=== PATIENT | male | born 1945 | race Caucasian/White ===

== ENCOUNTER 2018-09-17 10:58 | Inpatient (IN) ==
--- NOTE | 2018-09-12 08:53 | PAT Medication Instructions ---
Medication Instructions Date of Service September 12, 2018 Home Medications alfuzosin 10 mg PO HS cholecalciferol (vitamin D3) [Vitamin D3] 5,000 unit PO QAM coQ10 (ubiquinol) 200 mg PO BID cyanocobalamin (vitamin B-12) 100 mcg SUBCUT UD lorazepam 0.5 - 1 mg PO DAILY PRN losartan 100 mg PO QAM metoprolol succinate 50 mg PO QAM nitroglycerin 0.4 mg SUBLINGUAL UD PRN omeprazole 20 mg PO QAM rosuvastatin 40 mg PO HS Continue as directed nitroglycerin 0.4 mg SUBLINGUAL UD PRN (if needed) STOP taking 2 weeks before surgery (or as soon as possible if surgery is within 2 weeks) coQ10 (ubiquinol) 200 mg PO BID DO NOT take the morning of surgery cholecalciferol (vitamin D3) [Vitamin D3] 5,000 unit PO QAM cyanocobalamin (vitamin B-12) 100 mcg SUBCUT UD losartan 100 mg PO QAM Take morning of surgery With a small sip of water, OTHERWISE NOTHING TO EAT OR DRINK AFTER MIDNIGHT: lorazepam 0.5 - 1 mg PO DAILY PRN (if needed) metoprolol succinate 50 mg PO QAM omeprazole 20 mg PO QAM Take evening before surgery alfuzosin 10 mg PO HS rosuvastatin 40 mg PO HS Other Notes If you have any questions please call us at [phone] or [phone] or [phone] or [phone]
--- NOTE | 2018-09-12 09:03 | Anesthesiology Consultation ---
Date of Service September 12, 2018 Assessment & Plan (1) Encounter for pre-operative examination: - No previous anesthesia/intubation records available. Chart Review Chart Review: Acceptable Risk for Surgery and Patient seen in Pre Admission Testing Consults Requested medical (Dr. Rothman (09/12 @ 1:30)) Patient was seen by PCPs office on 09/12 for preoperative evaluation. Per note from that visit, patient is medically cleared pending cardiac clearance. Cardiologists office was contacted by PCP, and on 09/16/18 Dr. Park from Cardiology wrote a note that states "Mr. De La Fuente is cleared at intermediate risk for his upcoming procedure with you." Teaching & Discussion Pre-Anesthesia Teaching/Discussion Notes: Instructed NPO after midnight before s urgery, except medications with 15 cc of water. Medication instructions provided according to the PAT guidelines. History Surgery Operation Date: 09/17/18 12:45 Proposed Procedures p L3-L4 Decompression and Fusion, Spinal Cord Monitoring - Joon Small, Height/Weight Height: 5 ft 5.5 in Weight: 110.7 kg Allergies Allergy/AdvReac Type Severity Reaction Status Date / Time procaine [From Novocain] AdvReac Mild "got slow Verified 09/12/18 09:07 all over feeling" Medications Home Medications Medication Instructions Recorded Confirmed Last Taken alfuzosin 10 mg PO HS 09/12/18 09/12/18 Unknown cholecalciferol (vitamin D3) 5,000 unit PO QAM 09/12/18 09/12/18 Unknown [Vitamin D3] coQ10 (ubiquinol) 200 mg PO BID 09/12/18 09/12/18 Unknown cyanocobalamin (vitamin B-12) 100 mcg SUBCUT UD 09/12/18 09/12/18 Unknown lorazepam 0.5 - 1 mg PO DAILY PRN 09/12/18 09/12/18 Unknown losartan 100 mg PO QAM 09/12/18 09/12/18 Unknown metoprolol succinate 50 mg PO QAM 09/12/18 09/12/18 Unknown nitroglycerin 0.4 mg SUBLINGUAL UD PRN 09/12/18 09/12/18 Unknown omeprazole 20 mg PO QAM 09/12/18 09/12/18 Unknown rosuvastatin 40 mg PO HS 09/12/18 09/12/18 Unknown Past Medical History Medical History BPH (benign prostatic hyperplasia) Degenerative disc disease Diverticulitis GERD (gastroesophageal reflux disease) Hyperlipidemia Hypertension Irregular heart beat Myocardial Infarction 09/04/2014 Osteoarthritis Temporomandibular joint disorder Exercise / Class Metabolic Activity III < 4 Walking/Shop/Light housework (Currently limited due to the back/leg pain. Able to slowly climb stairs. Denies CP or SOB. ) Past Family History Family History Mother Family history of diabetes mellitus Past Surgical History Surgical History H/O wrist surgery RT WRIST FUSION History of appendectomy History of carpal tunnel release RT/LEFT History of colonoscopy History of esophagogastroduodenoscopy (EGD) History of heart artery stent 1 STENT PLACED 2014 IN [place] History of tooth extraction Past Anesthesia History No Hx of Anesthesia Complications and No Family Hx of Anesthesia Complications History of PONV No Hx of Motion Sickness and History of PONV (Once after wrist fusion, never again since that time. ) Social History Smoking Status: Former smoker tobacco type: cigarettes Smoking cigarettes per day: ?amount x 3 years Do You Dip or Chew Tobacco: No Smoking End Date: 1965 Hx Alcohol Use: Yes Alcohol type: beer alcohol intake frequency: holidays/special occasions only Hx Substance Use: No substance use type: does not use Review of Systems Patient denies chest pain, shortness of breath, dyspnea on exertion, cough, wheezing, palpitations. +Joint Pain (Back, right wrist) +Acid Reflux (Controlled by current medications) Physical Exam Vital Signs BP: 164/87 P: 75 R: 20 T: 98.2 SPO2: 94% on RA Constitutional + morbidly obese ENMT Mouth: + poor dentition Thyromental Distance: < 3.5 Finger Breadths (3) Mallampati Class: III Neck normal visual inspection and + thick neck; neck extension not limited Respiratory normal respiratory effort Auscultation: lungs clear to auscultation bilaterally Cardiovascular Rate/Rhythm: regular rate and regular rhythm Heart Sounds: no murmur Vessels: no carotid bruit Neurologic moves all extremities Psychiatric Orientation: alert and oriented x 3 Mood: + anxious mood Testing Laboratory Results 09/12/18 09:34 09/12/18 09:34 09/12/18 09/12/18 09/12/18 09:34 09:34 09:34 PT 10.3 INR 1.0 APTT 26.1 Urine Color Yellow Urine Appearance Clear Urine pH 7.5 Ur Specific Alva 1.016 Urine Protein Negative Urine Glucose (UA) Negative Urine Ketones Negative Urine Nitrite Negative Ur Leukocyte Esterase Negative Urine WBC (Auto) 1-5 Urine RBC (Auto) 0-4 U Hyaline Cast (Auto) 1-5 U Epithel Cells (Auto) 10-20 H Urine Bacteria (Auto) Negative Blood Type A Positive Antibody Screen NEGATIVE Electrocardiogram Date: 09/12/18 Findings: + NSR @ (72) Left axis deviation Chest X-Ray Date: 09/12/18 Findings: + NAD FINDINGS: The bones soft tissues and hemidiaphragms are normal. The cardiomediastinal silhouette is normal. The lungs are clear. The pulmonary vas culature is normal. Chronic atelectatic/lateral thickening changes left base IMPRESSION: No acute process. Echocardiogram Date: 03/10/18 EF: 60-65% LV Function: normal RWMA: + none Valvular Disease: + no significant valvular disease Normal left ventricular size and systolic function Mild cLVH Normal right ventricular size and function No significant valvular stenosis or regurgitation Mild aortic valve sclerosis No PFO/ASD identified Estimated PA systolic pressure is normal Stress Test Date: 03/12/18 Type: exercise Findings: + WNL Resting EF: 60-65% Resting LV Function: normal Resting RWMA: + none Valvular Disease: no significant valvular disease Exercise stress nuclear study is normal. Normal SPECT perfusion imaging. No significant ischemia detected. No evidence of infarct. Stress EKG test results normal. Normal left ventricular systolic function. The gated study showed the EF was 60-65%. Cardiac Catheterization Date: 09/04/14 Findings: + pertinent finding (Acute anterior wall ME with LAD occlusion) Intervention: + MARY placed Acute anterior wall ME with LAD occlusion and EF of 45% PTCA of occluded LAD with placement of 3 x 18 Xience stent.
--- NOTE | 2018-09-12 09:57 | XRay Report ---
XR chest Pre-admission PA/Lat CLINICAL HISTORY: pat preoperative COMPARISON STUDY: No previous studies for comparison. FINDINGS: The bones soft tissues and hemidiaphragms are normal. The cardiomediastinal silhouette is n ormal. The lungs are clear. The pulmonary vasculature is normal. Chronic atelectatic/lateral thickeni ng changes left base IMPRESSION: No acute process. The above report was generated using voice recognition software. It may contain grammatical, syntax or spelling errors. Electronically signed by: Aldo Victoria M.D. 09/12/2018 9:56 AM
[2018-09-12 10:47] LABS: Basophils # (auto) 0.03 K/uL (0-0.2); Basophils % (auto) 0.3 %; Eosinophils # (auto) 0.11 K/uL (0-0.5); Eosinophils % (auto) 1.2 %; Hematocrit (blood only) 41.5 % (42-52); Hemoglobin 14.4 g/dL (14.0-18.0); Immature Granulocytes # (auto) 0.02 K/uL (0.00-0.02); Immature Granulocytes % (auto) 0.2 %; Lymphocytes # (auto) 2.38 K/uL (1.2-3.4); Mean Corpuscular Hgb Conc 34.7 g/dL (32-36); Mean Corpuscular Volume 89.1 fL (80-100); Mean Platelet Volume 10.1 fL (7.4-10.4); Monocytes # (auto) 0.84 K/uL (0.11-0.59); Monocytes % (auto) 9.5 %; Neutrophils # (auto) 5.45 K/uL (1.4-6.5); Neutrophils % (auto) 61.8 %; Platelet Count 201 K/uL (130-400); RDW Coefficient of Variation 13.9 % (11.5-14.5); RDW Standard Deviation 45.5 fL (36.4-46.3); Red Blood Count 4.66 M/uL (4.7-6.1); White Blood Count 8.83 K/uL (4.8-10.8)
[2018-09-12 10:54] LABS: Appearance Urine Clear (Clear); Bacteria Urine Automated Negative (Negative); Bilirubin Urine Negative (Negative); Blood Urine Negative (Negative); Color Urine Yellow; Glucose Urine UA Negative (Negative); Ketones Urine Negative (Negative); Leukocyte Esterase Urine Negative (Negative); Nitrite Urine Negative (Negative); RBC Urine Automated 0-4 /hpf (0-4); Specific Gravity Urine 1.016 (1.000-1.030); Urobilinogen Urine Negative (Negative); pH Urine 7.5 (4.5-7.5)
[2018-09-12 10:56] LABS: Protein Urine Negative (Negative)
[2018-09-12 10:59] LABS: BUN Creatinine Ratio 12.2 (10-20); Calcium 9.2 mg/dl (8.5-10.1); Creatinine Clr Calc Pharmacy 64.1 ml/min; Est GFR (African American) 70.8; Est GFR (Non-African American) 61.1; Potassium 3.6 mmol/L (3.5-5.1)
[2018-09-12 11:05] LABS: Partial Thromboplastin Time 26.1 Seconds (21.0-31.0); Prothrombin Time 10.3 Seconds (9.0-12.0)
[~2018-09-17 10:58] MED LIST: ACETAMINOPHEN 500 MG TAB PO SCH; CEFAZOLIN 2000MG 2,000 MG/15 ML SYR IV SCH; CeleBREX 200 MG CAP PO SCH; GABAPENTIN 300 MG PO SCH; LR 15ML/HR IV SCH
--- OUTSIDE RECORDS SUMMARY | 2018-09-17 11:03 | External Medical Summary | Continuity of Care Document ---
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
[2018-09-17] MEDS ORDERED: MIDAZOLAM HCL 1 MG/ML 2ML VIAL ONE (11:32)
[2018-09-17] MEDS ORDERED: fentaNYL citrate 100 MCG/2 ML VIAL ONE ×3 (11:32→12:48)
--- NOTE | 2018-09-17 11:46 | History & Physical Bridge Note ---
Date of Service September 17, 2018 History & Physical Bridge Note I have examined the patient, reviewed the History & Physical and in the interval since the performance of the History & Physical I have noted the following changes of clinical significance: no changes noted
--- NOTE | 2018-09-17 11:47 | History & Physical Report ---
Date of Service September 17, 2018 Assessment & Plan (1) Spinal stenosis, lumbar region with neurogenic claudication: L3-L4 decompression and fusion Present on Admission?: Yes History of Present Illness Chief Complaint: Back and leg pain Primary Care Provider: Martin Rothman This is a 73-year-old male presents with worsening back and right leg pain. After failing extensive course of nonoperative care is here for surgical intervention. Allergies Allergy/AdvReac Type Severity Reaction Status Date / Time procaine [From Novocain] AdvReac Mild "got slow Verified 09/17/18 11:13 all over feeling" Home Medications Home Medications Medication Instructions Recorded Confirmed Type alfuzosin 10 mg PO HS 09/12/18 09/17/18 History cholecalciferol (vitamin D3) 5,000 unit PO QAM 09/12/18 09/17/18 History [Vitamin D3] coQ10 (ubiquinol) 200 mg PO BID 09/12/18 09/17/18 History cyanocobalamin (vitamin B-12) 100 mcg SUBCUT UD 09/12/18 09/17/18 History lorazepam 0.5 - 1 mg PO DAILY PRN 09/12/18 09/17/18 History losartan 100 mg PO QAM 09/12/18 09/17/18 History metoprolol succinate 50 mg PO QAM 09/12/18 09/17/18 History nitroglycerin 0.4 mg SUBLINGUAL UD PRN 09/12/18 09/12/18 History omeprazole 20 mg PO QAM 09/12/18 09/17/18 History rosuvastatin 40 mg PO HS 09/12/18 09/17/18 History Past Med/Surg History Medical History BPH (benign prostatic hyperplasia) Degenerative disc disease Diverticulitis GERD (gastroesophageal reflux disease) Hyperlipidemia Hypertension Irregular heart beat Myocardial Infarction 09/04/2014 Osteoarthritis Temporomandibular joint disorder Surgical History H/O wrist surgery RT WRIST FUSION History of appendectomy History of carpal tunnel release RT/LEFT History of colonoscopy History of esophagogastroduodenoscopy (EGD) History of heart artery stent 1 STENT PLACED 2014 IN [place] History of tooth extraction Family History Mother Family history of diabetes mellitus Social History Preferred Language: Estonian Communication Ability: Effective Home Improvement Installer Required: No Beliefs That Will Affect Care: None Current Living Situation: Alone Other Information That Helps Us Care for You: No Feels Safe at Home: Yes Safety Concerns: Feels Safe At This Time Smoking Status: Former smoker Tobacco Type: cigarettes Cigarettes Per Day: ?amount x 3 years Do You Dip or Chew Tobacco: No Smoking End Date: 1966 Second Hand Exposure: Yes (IN THE PAST) Tobacco Cessation Education Requested by Patient: No Hx Alcohol Use: Yes Alcohol type: beer Hx Substance Use: No Physical Exam Vital Signs (Past 24 Hours): Patient is alert and oriented neurologically intact with quadriceps weakness on the right.
[2018-09-17] MEDS ORDERED: LIDOCAINE HCL 2% 2 ML VIAL/AMP(20MG/ML) INFIL ONE ×2 (12:07→12:53)
[2018-09-17] MEDS ORDERED: fentaNYL citrate 100 MCG/2 ML VIAL IV PRN (12:08)
[2018-09-17] MEDS ORDERED: HYDROmorphone INJ 2 MG/ML SYR/VIAL ONE ×2 (12:08→13:56)
[2018-09-17] MEDS ORDERED: ONDANSETRON INJ 2 MG/ML 2 ML VIAL IV PRN ×2 (12:08→15:48)
[2018-09-17] MEDS ORDERED: ATROPINE SULFATE 0.1 MG/ML 10ML SYR IV PRN (12:08)
[2018-09-17] MEDS ORDERED: ePHEDrine sulfate 50 MG/ML AMP IV PRN (12:08)
[2018-09-17] MEDS ORDERED: PROMETHAZINE HCL 6.25 MG in SODIUM CHLORIDE 0.9% 50 ML IV PRN (12:08)
--- NOTE | 2018-09-17 12:08 | Anesthesiology Progress Note ---
Date of Service September 17, 2018 Anesthesia Post Procedure Vital Signs Vital Signs: Temp Pulse Resp BP 09/17/18 11:34 36.8 C 82 18 159/87 H Pain Intensity Lower Back: Pain Intensity: 5 Transfer of Care Handoff Completed per policy Notes Mental Status: alert / awake / arousable Patient Amnestic to Procedure: Yes Nausea / Vomiting: adequately controlled Pain: adequately controlled Airway Patency, RR, SpO2: stable & adequate BP & HR: stable & adequate Hydration State: stable & adequate Anesthetic Complications: no major complications apparent
[2018-09-17] MEDS ORDERED: BUPIVACAINE/EPINEPHRINE 0.5% MPF 1:200,000 30 ML VIAL ONE (12:09)
[2018-09-17] MEDS ORDERED: BACITRACIN INJ 50,000 UNIT VIAL ONE (12:09)
[2018-09-17] MEDS ORDERED: DEXAMETHASONE SOD INJ 4 MG/ML VIAL ONE (12:53)
[2018-09-17] MEDS ORDERED: ROCURONIUM BROMIDE 10 MG/ML 5 ML VIAL ONE (12:53)
[2018-09-17] MEDS ORDERED: PROPOFOL IV EMULSION 10 MG/ML 20 ML VIAL IV ONE (12:53)
[2018-09-17] MEDS ORDERED: ONDANSETRON INJ 2 MG/ML 2 ML VIAL ONE (12:53)
[2018-09-17] MEDS ORDERED: NEOSTIGMINE METHYLSULFATE 1 MG/ML 10ML VIAL ONE (12:53)
[2018-09-17] MEDS ORDERED: ePHEDrine sulfate 50 MG/ML SYR ONE (12:53)
[2018-09-17] MEDS ORDERED: GLYCOPYRROLATE 0.2 MG/ML VIAL ONE (12:53)
[2018-09-17] MEDS ORDERED: PHENYLEPHRINE 100MCG/ML 5ML SYR ONE (12:53)
[2018-09-17] MEDS ORDERED: PHENYLEPHRINE HCL 10 MG/ML VIAL ONE (13:02)
[2018-09-17] MEDS ORDERED: FLOSEAL HEMOSTATIC MATRIX 10ML TOP ONE (13:46)
[2018-09-17] MEDS ORDERED: KETOROLAC 30 MG/ML VIAL ONE (13:56)
[2018-09-17] MEDS ORDERED: LARYING-O-JET KIT (LTA) ONE (13:56)
[2018-09-17] MEDS ORDERED: ESMOLOL HCL INJ 10 MG/ML 10ML VIAL IV ONE (13:56)
--- NOTE | 2018-09-17 13:57 | Operative Report ---
Post Operative Report Pre & Post Diagnosis Operation Date: 09/17/18 12:45 Pre-Op Diagnosis: Lumbar spinal stenosis with herniated nucleus pulposus and radiculopathy. obesity Post-Op Diagnosis: Same Procedure Operation Date: 09/17/18 12:45 Actual Procedures #1 lumbar decompression with bilateral medial facetectomies foraminotomies L3-4. #2 posterior spinal fusion L3-4. #3 placement posterior instrumentation L3-4. #4 interbody fusion L3-4. #5 placement of titanium 13 x 26 mm cage L3-4. #6 placement of infuse collagen sponge bone mass graft in the posterior lateral gut ters and ostial amp in the interbody space. #7 placement of local autograft in the posterior lateral gutters. Surgeon Joon Small, DO Medical Education Coordinator Tiki Silver Estimated Blood Loss 175 Findings See Below The patient is 5 foot and 5 inches tall weighing 106.8 kg with a BMI of 38.6. Patient's body habitus created significant technical difficulty with exposure and decompression requiring her largest retractors and instruments. This added at least 25% increase in operative time. Specimens None Indications This is a 73-year-old male who presents with severe back and right leg pain. After failing extensive course of nonoperative care like to go the above- mentioned procedure. Description of Procedure The patient was met with identified and informed consent obtained. He was then taken to the operative suite underwent intubation and placed in a prone position the Sean table on top of the Young frame. All bony prominences well-padded eyes inspected to ensure no external pressure placed upon the peer at this point the lumbar spine was prepped and draped in normal sterile fashion. Sharp dissection with the assistance of Bovie cautery was performed down to and exposing the lamina and transverse processes of L3 and L4 bilaterally. From a caudal to cephalad fashion complete laminectomy of L3 was performed including bilateral medial facetectomies and foraminotomies as well as removal of a massive far lateral disc herniation at L3-4 on the right. After complete decompression pedicle screws were placed in L3 and L4 bilaterally with assistance of fluoroscopy the purposes greg placed. By way of a transforaminal approach on the right complete discectomy was performed in plate graded to subcortical bleeding bone and a 13 x 26 mm titanium cage with osteo-amp bone graft tapped in position. The rods were then compressed locked into final position bilaterally. The transverse processes of L5 3 and L4 burred to subcortical bleeding bone. Infuse collagen sponge mass graft local autograft placed in the posterior lateral gutters. 15 round SERJIO drain inserted. Incision was then closed with 1 Vicryl in the fascia 2-0 Vicryl subtenons seen for Monocryl for final skin closure. Steri-Strip sterile dressings placed. Patient will continue PACU stable disc. Please note Tiki Silver present at the entire procedure involved the patient positioning complex portions of the surgery and final skin closure. Lastly spinal cord monitoring was utilized and no changes noted. I attest to the content of the Intraoperative Record and any orders documented therein. Any exceptions are noted below.
--- NOTE | 2018-09-17 14:44 | Anesthesiology Progress Note ---
Date of Service September 17, 2018 Anesthesia Post Procedure Vital Signs Vital Signs: Temp Pulse Pulse Resp BP Pulse Ox 09/17/18 14:40 79 15 104/52 L 94 09/17/18 14:30 86 15 104/67 98 09/17/18 14:20 90 15 118/72 98 09/17/18 14:12 36.1 C L 93 H 14 110/71 94 09/17/18 11:34 36.8 C 82 18 159/87 H Pain Intensity Lower Back: Pain Intensity: 5 Transfer of Care Handoff Completed per policy Notes Mental Status: alert / awake / arousable Patient Amnestic to Procedure: Yes Nausea / Vomiting: adequately controlled Pain: adequately controlled Airway Patency, RR, SpO2: stable & adequate BP & HR: stable & adequate Hydration State: stable & adequate Anesthetic Complications: no major complications apparent
--- NOTE | 2018-09-17 14:51 | Fluoroscopy Report ---
LUMBAR SPINE, INTRAOPERATIVE FLUOROSCOPY HISTORY: L3-L4 decompression and fusion. FLUOROSCOPY TIME: 14 seconds. FINDINGS: Intraoperative fluoroscopy was provided for the lumbar spine. 2 fluoroscopic spot images we re obtained. Posterior decompression fusion at L3-L4 with pedicle screws and rods. The hardware appea rs intact. IMPRESSION: Fluoroscopy provided for a L3-L4 posterior decompression and fusion. Electronically signed by: Bob Rodriguez M.D. 09/17/2018 2:50 PM
[2018-09-17] MEDS: LACTATED RINGER'S 1,000 ML IV SCH ×2 (15:30→22:01)
[2018-09-17] MEDS ORDERED: ACETAMINOPHEN 1,000 MG/100 ML VIAL IV PRN (15:48)
[2018-09-17] MEDS ORDERED: DO NOT ADMINISTER FLU VACCINE PRN (15:48)
[2018-09-17] MEDS ORDERED: FAMOTIDINE 20 MG TAB PO PRN (15:48)
[2018-09-17] MEDS ORDERED: MAGNESIUM HYDROXIDE SUSP 30 ML UDC PO PRN (15:48)
[2018-09-17] MEDS ORDERED: ALUMINUM/MAGNESIUM SUSP 30 ML UDC PO PRN (15:48)
[2018-09-17] MEDS ORDERED: HYDROmorphone INJ 0.5 MG/0.5 ML SYR IV PRN (15:48)
[2018-09-17] MEDS ORDERED: SOD PHOSPHATE/SOD BIPHOSPHATE ENEMA 132 ML BTL PR PRN (15:48)
[2018-09-17] MEDS ORDERED: BISACODYL 10 MG SUPP PR PRN (15:48)
[2018-09-17] MEDS ORDERED: DO NOT ADMINISTER PNEUMOCOCCAL VACCINE PRN (15:48)
[2018-09-17] MEDS ORDERED: NITROGLYCERIN SL 0.4 MG/TAB TAB SL PRN (15:48)
[2018-09-17] MEDS ORDERED: ACETAMINOPHEN 500 MG TAB PO PRN (15:48)
[2018-09-17] MEDS ORDERED: METOCLOPRAMIDE HCL INJ 5 MG/ML 2 ML VIAL IV PRN (15:48)
[2018-09-17] MEDS ORDERED: PROMETHAZINE HCL 12.5 MG in SODIUM CHLORIDE 0.9% 50 ML IV PRN (15:48)
[2018-09-17] MEDS ORDERED: TRAMADOL HCL 50 MG TABLET PO PRN (15:48)
[2018-09-17] MEDS ORDERED: LORazepam 0.5 MG/1 ML VIAL IV PRN (15:48)
--- NOTE | 2018-09-17 20:18 | Anesthesiology Progress Note ---
Date of Service September 17, 2018 Assessment & Plan (1) Corneal abrasion, left: The patients symptoms and presentation are consistent with post operative corneal abrasion. I discussed this with the patient and his daughter. Most corneal abrasions self resolve within the first 24 to 72 hours. Patching is not necessary and may impair healing. The patient was encouraged to rest with eyes closed and the patient can gently apply a cool compress for symptom relief. The patient should avoid rubbing or touching the symptomatic eye. An order was placed for erythromycin ointment QID to assist with eye pain and symptoms if the patient wishes to use it. We will follow-up with the patient tomorrow to ensure his symptoms continue to improve. Present on Admission?: No Subjective Called to see Mr. De La Fuente who is status post L3-L4 decompression with Dr. Dawn earlier today for left eye pain. The patient states that he first noticed the pain shortly after arriving upstairs when he started to feel more awake. He describes the pain as a foreign body sensation that is worse with blinking. The pain is slightly relieved when he keeps his eyes shut. The pain has improved since he first noticed it, but it is still present. Initially, he may have had some blurry vision in the left eye with the pain, but he feels his vision seems normal now. Review of Systems Review of Systems: All systems reviewed & are unremarkable except as noted in HPI & below Physical Exam Vital Signs: Last Vital Signs Temp 36.7 C 09/17/18 17:43 Pulse 87 09/17/18 17:43 Resp 16 09/17/18 17:43 BP 131/76 09/17/18 17:43 Pulse Ox 96 09/17/18 17:43 Constitutional: WD/WN, vitals as above Eyes: Left eye erythematous, EOMI, no visible foreign body in the left eye or under the upper/lower eye lids. Pupils round and reactive. Respiratory: normal respiratory effort Psychiatric: A+Ox3, euthymic affect Results & Data Medications Administered Lactated Ringer's (Lr) 1,000 mls @ 150 mls/hr IV .[id number] MARINE Stop: 10/17/18 15:47 Last Admin: 09/17/18 15:30 Dose: 150 mls/hr Documented by: [id number]
[2018-09-17] MEDS: CEFAZOLIN 2000MG 2,000 MG/15 ML SYR IV SCH (20:34)
[2018-09-17] MEDS: ALFUZOSIN HCL 10 MG TAB PO SCH (20:37)
[2018-09-17] MEDS: ROSUVASTATIN CALCIUM 20 MG TAB PO SCH (20:37)
[2018-09-17] MEDS: DOCUSATE SODIUM/SENNA 50/8.6MG TAB PO SCH (20:38)
[2018-09-17] MEDS ORDERED: NON-FORMULARY MEDICATION (Coq10 (Ubiquinol) 200 MG) PO SCH (21:00)
[2018-09-17] MEDS: ERYTHROMYCIN OP OINT 1 GM PKT OP SCH (21:53)
[2018-09-18] MEDS: CEFAZOLIN 2000MG 2,000 MG/15 ML SYR IV SCH (04:12)
[2018-09-18] MEDS: POLYETHYLENE (MIRALAX) 17 GM PACK PO SCH ×3 (05:12→18:26)
[2018-09-18 07:02] LABS: Eosinophils # (auto) 0.01 K/uL (0-0.5); Eosinophils % (auto) 0.1 %; Hematocrit (blood only) 37.8 % (42-52); Hemoglobin 13.2 g/dL (14.0-18.0); Immature Granulocytes # (auto) 0.05 K/uL (0.00-0.02); Immature Granulocytes % (auto) 0.3 %; Lymphocytes # (auto) 2.01 K/uL (1.2-3.4); Mean Corpuscular Hgb Conc 34.9 g/dL (32-36); Mean Corpuscular Volume 87.3 fL (80-100); Mean Platelet Volume 9.5 fL (7.4-10.4); Monocytes # (auto) 1.42 K/uL (0.11-0.59); Monocytes % (auto) 7.7 %; Neutrophils # (auto) 14.86 K/uL (1.4-6.5); Neutrophils % (auto) 80.9 %; Platelet Count 183 K/uL (130-400); RDW Coefficient of Variation 13.5 % (11.5-14.5); RDW Standard Deviation 43.4 fL (36.4-46.3); Red Blood Count 4.33 M/uL (4.7-6.1); White Blood Count 18.35 K/uL (4.8-10.8)
[2018-09-18 07:30] LABS: BUN Creatinine Ratio 15.8 (10-20); Calcium 8.9 mg/dl (8.5-10.1); Creatinine Clr Calc Pharmacy 57.5 ml/min; Est GFR (African American) 63.5; Est GFR (Non-African American) 54.8; Potassium 3.6 mmol/L (3.5-5.1)
[2018-09-18] MEDS: CHOLECALCIFEROL 1,000 UNITS TAB PO SCH (08:24)
[2018-09-18] MEDS: LOSARTAN POTASSIUM 50 MG TAB PO SCH (08:24)
[2018-09-18] MEDS: METOPROLOL SUCC 50MG EXT REL TAB PO SCH (08:25)
[2018-09-18] MEDS: hydroCHLOROthiazide 25 MG TAB PO SCH (08:25)
[2018-09-18] MEDS: ERYTHROMYCIN OP OINT 1 GM PKT OP SCH ×4 (08:25→19:53)
[2018-09-18] MEDS: ASPIRIN 81 MG ECTAB PO SCH (08:25)
[2018-09-18] MEDS: PANTOprazole 40 MG TAB PO SCH (08:25)
[2018-09-18] MEDS: OXYCODONE HCL IR 5 MG TAB (IMMEDIATE RELEASE) PO PRN ×3 (08:28→19:53)
--- NOTE | 2018-09-18 09:58 | Orthopedic Progress Note ---
Date of Service September 18, 2018 Assessment & Plan (1) Spinal stenosis, lumbar region with neurogenic claudication: This time we will continue physical therapy monitor his SERJIO output anticipate discharge home Saturday. Present on Admission?: Yes Subjective Patient has marked improvement of his leg pain is quite comfortable. Physical Exam Physical Exam: Patient is good strength testing appears very comfortable. Results & Data Vital Signs (Past 12 Hours) Vital Signs Temp Pulse Resp BP Pulse Ox 09/18/18 07:10 36.8 C 97 H 18 137/74 96 09/18/18 03:34 37.0 C 98 H 16 111/71 93 09/17/18 23:06 36.9 C 99 H 16 134/73 94
--- NOTE | 2018-09-18 10:25 | Anesthesiology Progress Note ---
Date of Service September 18, 2018 Anesthesia Post Procedure Vital Signs Vital Signs: Temp Pulse Pulse Resp BP BP Pulse Ox 09/18/18 07:10 36.8 C 97 H 18 137/74 96 09/18/18 03:34 37.0 C 98 H 16 111/71 93 09/17/18 23:06 36.9 C 99 H 16 134/73 94 09/17/18 17:43 36.7 C 87 16 131/76 96 09/17/18 16:37 36.7 C 71 16 122/71 96 09/17/18 16:00 36.3 C L 77 16 123/72 96 09/17/18 15:30 36.3 C L 89 16 111/67 99 09/17/18 15:15 36.2 C L 76 15 103/46 L 98 09/17/18 15:00 36.2 C L 69 15 102/46 L 94 09/17/18 14:50 36.2 C L 79 14 104/49 L 94 09/17/18 14:40 79 15 104/52 L 94 09/17/18 14:30 86 15 104/67 98 09/17/18 14:20 90 15 118/72 98 09/17/18 14:12 36.1 C L 93 H 14 110/71 94 09/17/18 11:34 36.8 C 82 18 159/87 H Pain Intensity Lower Back: Pain Intensity: 5 Notes Mental Status: alert / awake / arousable and participated in evaluation Nausea / Vomiting: adequately controlled Pain: adequately controlled Airway Patency, RR, SpO2: stable & adequate BP & HR: stable & adequate Hydration State: stable & adequate Notes: Patient complaining of corneal abrasion with blurred vision. Dr Rodriguez following up with patient.
[2018-09-18] MEDS: DOCUSATE SODIUM/SENNA 50/8.6MG TAB PO SCH (19:52)
[2018-09-18] MEDS: ALFUZOSIN HCL 10 MG TAB PO SCH (19:52)
[2018-09-18] MEDS: ROSUVASTATIN CALCIUM 20 MG TAB PO SCH (19:52)
[2018-09-18] MEDS: LORazepam 0.5 MG TAB PO PRN (20:47)
[2018-09-19] MEDS: POLYETHYLENE (MIRALAX) 17 GM PACK PO SCH ×4 (01:06→17:15)
[2018-09-19] MEDS: OXYCODONE HCL IR 5 MG TAB (IMMEDIATE RELEASE) PO PRN ×4 (01:22→19:28)
[2018-09-19] MEDS: ERYTHROMYCIN OP OINT 1 GM PKT OP SCH ×4 (08:50→20:16)
[2018-09-19] MEDS: PANTOprazole 40 MG TAB PO SCH (08:50)
[2018-09-19] MEDS: CHOLECALCIFEROL 1,000 UNITS TAB PO SCH (08:50)
[2018-09-19] MEDS: hydroCHLOROthiazide 25 MG TAB PO SCH (08:50)
[2018-09-19] MEDS: ASPIRIN 81 MG ECTAB PO SCH (08:50)
[2018-09-19] MEDS: LOSARTAN POTASSIUM 50 MG TAB PO SCH (08:50)
[2018-09-19] MEDS: METOPROLOL SUCC 50MG EXT REL TAB PO SCH (08:50)
--- NOTE | 2018-09-19 10:30 | Orthopedic Progress Note ---
Date of Service September 19, 2018 Assessment & Plan (1) Spinal stenosis, lumbar region with neurogenic claudication: Maintain physical therapy today monitor his SERJIO output possible discharge home tomorrow. Present on Admission?: Yes Subjective Back pain is controlled leg symptoms markedly improved. Physical Exam Physical Exam: Patient has good strength testing exam fitting well. Results & Data Vital Signs (Past 12 Hours) Vital Signs Temp Pulse Resp BP Pulse Ox 09/19/18 07:27 36.9 C 100 H 18 120/73 95 09/18/18 23:19 37.0 C 79 16 124/73 92
[2018-09-19] MEDS: DOCUSATE SODIUM/SENNA 50/8.6MG TAB PO SCH (20:16)
[2018-09-19] MEDS: ROSUVASTATIN CALCIUM 20 MG TAB PO SCH (20:16)
[2018-09-19] MEDS: ALFUZOSIN HCL 10 MG TAB PO SCH (20:16)
[2018-09-20] MEDS: POLYETHYLENE (MIRALAX) 17 GM PACK PO SCH ×3 (00:14→13:13)
[2018-09-20] MEDS: LORazepam 0.5 MG TAB PO PRN (04:42)
--- NOTE | 2018-09-20 09:02 | Discharge Summary ---
Date of Service September 20, 2018 Admission HPI Per Admitting Provider This is a 73-year-old male presents with worsening back and right leg pain. After failing extensive course of nonoperative care is here for surgical intervention. Principal Diagnosis Lumbar spinal stenosis with radiculopathy Discharge Data Allergies Allergy/AdvReac Type Severity Reaction Status Date / Time procaine [From Novocain] AdvReac Mild "got slow Verified 09/17/18 11:13 all over feeling" Consultations 09/17/18 15:48 Consult Case Management - Discharge Planning Routine Procedures Performed Operation Date: 09/17/18 12:45 Actual Procedures p L3-L4 Decompression and Fusion, Spinal Cord Monitoring(Not Applicable) - Joon Small DO Ordered Studies 09/17/18 12:45 FL fluoroscopy <1hr Routine FL lumbar spine 2-3V Routine Hospital Course (1) Spinal stenosis, lumbar region with neurogenic claudication: Patient underwent lumbar decompression fusion tolerated as well as taken the orthopedic floor postoperative. Postop day 1 he was up and ambulating leg symptoms markedly improved. He progressed to postop day #2. SERJIO drain decreasing probably. Subsequently discharged home on postop day #3. Discharge orders and instructions can be found the chart for further review. Total Time Total Time Spent Total Time Spent (In Minutes): 20 minutes Discharge Plan Discharge Items Patient Disposition: Home - Self-Care Reason For Visit: Radiculopathy, Lumbar Region Discharge Diagnosis: lumbar stenosis Discharge Goals: Decrease discomfort Activity: Per 'Additional Instructions' section Non-emergency contact: Primary Care Provider Call non-emergency contact if: you have any medication questions Follow-up/Referrals: Martin Rothman D.O. [Primary Care Provider] - Diet: Regular Addtl Provider Instructions: ACTIVITY RECOMMENDATIONS: SELF CARE INSTRUCTIONS AFTER THORACIC/LUMBAR FUSIONS 1. You may walk to your tolerance. It is good exercise for your legs and back. Expect some back and intermittent leg aches and pains. 2. You may perform "counter-top" level activities (make a sandwich, antwan with a project, etc.). 3. No bending or lifting of more than 10 pounds or back twisting of any nature (roll like a log when turning in bed). 4. You may ride in a car for 20-30 minutes at a time. No driving until after your first visit with your doctor. 5. Frequent changes of position and restricting sitting to 30 minutes at a time will help limit the amount of back spasms and stiffness you may experience. 6. You may discontinue the use of ambulatory aids (cane, crutches, etc.) once y our strength and confidence allow. 7. 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 Do not take a tub bath, sit in a hot tub or go into a swimming pool until after your first recheck in the office. SPECIAL CARE INSTRUCTIONS: VERY IMPORTANT TO READ AND REVIEW A. Your surgical incision has been closed with a cosmetic suture under the skin that will dissolve in about 6 weeks. In 14 days, you can use a pair of clean scissors and cut the suture that is left outside of the skin at the ends of your incision. 1. The small skin tapes can be removed 7 days after surgery if they have not fallen off by that point. 2. You may keep the wound open to air as much as possible to promote healing after post-op day number 5 unless told otherwise by your doctor. 3. If you think the wound looks like it is becoming infected (redness or worsening drainage) and/or you are experiencing fever, chill or worsening back pain and muscle spasms, contact the office so that we may evaluate you as soon as possible. B. Complications are uncommon, but please contact us if you have any signs or symptoms of: 1. wound infection (fever higher than 102.5 degrees F, redness, separation of wound, drainage, or increasing pain from the incision) 2. blood clots in legs (pain, swelling, redness and warmth in legs) 3. urinary tract infection (fever higher than 102.5 degrees F, burning upon urination or increased frequency of urination) 4. nerve problems (inability to walk on your toes or heels, numbness, loss of bowel or bladder control) 5. any other symptoms that concern you C. Please call the office at if you have any concerns or questions about your operation or recovery. D. No smoking! Smoking drastically decreases the chance of a solid fusion. E. Do not take any anti-inflammatory medications (Indocin, Advil, Motrin, Aspirin, Naprosyn, etc.) as these may inhibit the chance of a solid fusion. Tylenol is okay to take for pain. MANAGING PAIN AFTER SPINAL SURGERY 1. Narcotic medication is intended for short-term use and will be provided for surgical pain. Surgical pain usually lasts for a period of 4-6 weeks. Narcotic medication includes Percocet, Vicodin, Darvocet, Tylenol #3 or Lortab. 2. Longer-term pain is more appropriately treated with non-narcotic medication such as Tylenol ES. 3. Muscle spasm is not appropriately treated with narcotics. Muscle relaxers such as Soma, Flexeril or Skelaxin can be used along with Tylenol ES. 4. Remember that we all live with some "aches and pains". This is not unusual or uncommon after an injury or as we get older. a. Back pain is expected and may include muscle spasms for 4 to 6 weeks after surgery. The pain should gradually improve. If the pain worsens for no apparent reason, please contact the office. b. Intermittent leg pain may also be experienced and should not be concerned about unless it worsens for no apparent reason. If so, please contact the office. 5. We will provide appropriate medication within the normal guidelines of their prescribed use. We will also be very cautious and aware of potential abuse and extended duration of patients' medication needs. a. Pain medications are for your comfort and to assist with sleep and rest so that the tissue can heal. They are not provided in order to return to normal activity and should not be used through the day. To do so or worsening pain at night can result from ongoing tissue damage and development of tolerance to the prescribed medicine. 6. Please allow 2-3 days to process refills. Prescriptions will not be mailed but must be picked up at the office. FOLLOW UP VISIT: Keep your scheduled follow-up appointment. Any questions, please call the office at . Prescriptions: New tramadol 50 mg Tablet 50 mg PO Q4H PRN (Reason: Pain, Moderate) Qty: 30 RF: 0 oxycodone 5 mg Tablet 5 mg PO Q4H PRN (Reason: Pain, Severe) Qty: 30 RF: 0 Continued metoprolol succinate 50 mg Tablet Extended Release 24 Hr 50 mg PO QAM RF: 0 cyanocobalamin (vitamin B-12) 1,000 mcg/mL Solution 100 mcg SUBCUT UD RF: 0 nitroglycerin 0.4 mg Tablet, Sublingual 0.4 mg sublingual UD PRN (Reason: Chest Pain) RF: 0 lorazepam 1 mg Tablet 0.5 - 1 mg PO DAILY PRN (Reason: Anxiety) RF: 0 losartan 100 mg Tablet 100 mg PO QAM RF: 0 rosuvastatin 40 mg Tablet 40 mg PO HS RF: 0 alfuzosin 10 mg Tablet Extended Release 24 Hr 10 mg PO HS RF: 0 omeprazole 20 mg Tablet,Delayed Release (Dr/Ec) 20 mg PO QAM RF: 0 cholecalciferol (vitamin D3) [Vitamin D3] 5,000 unit Tablet 5,000 unit PO QAM RF: 0 coQ10 (ubiquinol) 200 mg Capsule 200 mg PO BID RF: 0 aspirin tablet 81 mg PO DAILY RF: 0 hydrochlorothiazide tablet 25 mg PO DAILY RF: 0 Stand-Alone Forms: [facility] Discharge Orders: Discharge Order (Routine); Ordered 09/20/18 Ordered By: Joon Small Admission Data Admit Date/Time: 09/17/18 14:02 Attending Provider: Joon Small Admit Provider: Joon Small Primary Care Provider: Martin Rothman Service: Surgical Services
[2018-09-20] MEDS: ERYTHROMYCIN OP OINT 1 GM PKT OP SCH (09:26)
[2018-09-20] MEDS: ASPIRIN 81 MG ECTAB PO SCH (09:26)
[2018-09-20] MEDS: METOPROLOL SUCC 50MG EXT REL TAB PO SCH (09:27)
[2018-09-20] MEDS: PANTOprazole 40 MG TAB PO SCH (09:27)
[2018-09-20] MEDS: hydroCHLOROthiazide 25 MG TAB PO SCH (09:27)
[2018-09-20] MEDS: CHOLECALCIFEROL 1,000 UNITS TAB PO SCH (09:28)
[2018-09-20] MEDS: LOSARTAN POTASSIUM 50 MG TAB PO SCH (09:28)
[2018-09-20] MEDS: OXYCODONE HCL IR 5 MG TAB (IMMEDIATE RELEASE) PO PRN (13:23)
== END 2018-09-20 13:52 | disposition home or self-care (01) ==
LOC: ASU 10:58 → 3E 14:02

== ENCOUNTER 2021-06-21 06:14 | Inpatient (IN) ==
--- NOTE | 2021-05-25 10:22 | PAT Medication Instructions ---
Medication Instructions Date of Service May 25, 2021 Home Medications alfuzosin 10 mg tablet,extended release 24 hr 10 mg PO HS losartan 100 mg tablet 100 mg PO HS metoprolol succinate 50 mg tablet,extended release 24 hr 50 mg PO QAM nitroglycerin 0.4 mg sublingual tablet 0.4 mg SUBLINGUAL UD PRN omeprazole 20 mg tablet,delayed release 20 mg PO QAM rosuvastatin 40 mg tablet 40 mg PO HS acetaminophen 500 mg tablet 1,000 mg PO Q6H PRN amoxicillin 500 mg tablet 500 mg PO Q8H aspirin 81 mg tablet,delayed release 81 mg PO HS cyanocobalamin (vitamin B-12) 5,000 mcg capsule 5,000 mcg PO Q2D empagliflozin 10 mg tablet 10 mg PO QAM ezetimibe 10 mg tablet 10 mg PO HS gabapentin 300 mg capsule 300 mg PO TID hydrochlorothiazide 25 mg tablet 25 mg PO QAM magnesium oxide 400 mg PO QAM potassium chloride 20 mEq tablet,extended release 20 meq PO QAM Continue as directed nitroglycerin 0.4 mg sublingual tablet 0.4 mg SUBLINGUAL UD PRN (if needed) amoxicillin 500 mg tablet 500 mg PO Q8H DO NOT take the morning of surgery hydrochlorothiazide 25 mg tablet 25 mg PO QAM magnesium oxide 400 mg PO QAM potassium chloride 20 mEq tablet,extended release 20 meq PO QAM cyanocobalamin (vitamin B-12) 5,000 mcg capsule 5,000 mcg PO Q2D empagliflozin 10 mg tablet 10 mg PO QAM Take morning of surgery With a small sip of water, OTHERWISE NOTHING TO EAT OR DRINK AFTER MIDNIGHT: metoprolol succinate 50 mg tablet,extended release 24 hr 50 mg PO QAM omeprazole 20 mg tablet,delayed release 20 mg PO QAM acetaminophen 500 mg tablet 1,000 mg PO Q6H PRN (okay to take up to 4 hours prior to surgery if needed) gabapentin 300 mg capsule 300 mg PO TID Take evening before surgery alfuzosin 10 mg tablet,extended release 24 hr 10 mg PO HS losartan 100 mg tablet 100 mg PO HS rosuvastatin 40 mg tablet 40 mg PO HS acetaminophen 500 mg tablet 1,000 mg PO Q6H PRN (if needed) aspirin 81 mg tablet,delayed release 81 mg PO HS (unless surgeon directed otherwise) ezetimibe 10 mg tablet 10 mg PO HS gabapentin 300 mg capsule 300 mg PO TID Other Notes If you have any questions please call us at [phone] or [phone] or [phone] or [phone]
--- NOTE | 2021-05-31 11:54 | Anesthesiology Consultation ---
Date of Service May 31, 2021 Assessment & Plan (1) Encounter for pre-operative examination: Chart Review Chart Review: Acceptable Risk for Surgery (pending preop Covid testing results and surgeon ordered PCP/cardio clearances ) and Patient seen in Pre Admission Testing - Awaiting surgeon ordered PCP (06/02) and cardio (06/14) clearances - Check BSG AM DOS Per PAT appt on 05/31/21, patient denies any recent travel or large group activities. No known Covid positive exposures or Covid related symptoms. No known Covid infection in the past 90 days. Pt is vaccinated for Covid. Preop Covid testing scheduled 06/19/21= will await results. Educated on importance of self quarantining, social distancing and wearing mask in public for the patient one week prior to surgery and after Covid testing done L3-4 decompression with instrumental fusion 09/17/18= Done under [place] with Grade 1 view with MAC #3. ETT #8.0 Teaching & Discussion Pre-Anesthesia Teaching/Discussion Notes: Instructed NPO after midnight before surgery,except medications with 15 cc of water. Medication instructions provided according to the PAT guidelines. History Surgery Operation Date: 06/21/21 07:45 Proposed Procedures p L2-L3 and L4-L5 Decompression and Fusion L3-L4 Hardware Removal Spinal Cord Monitoring - Joon Small, Height/Weight Height: 5 ft 5.5 in Weight: 103 kg Allergies Allergy/AdvReac Type Severity Reaction Status Date / Time procaine [From Novocain] AdvReac Mild "got slow Verified 05/23/21 10:13 all over feeling"-HAPPY Additional Notes: Surgeon's office informed of procaine allergy Medications Home Medications Medication Instructions Recorded Confirmed Last Taken alfuzosin 10 mg tablet,extended 10 mg PO HS 09/12/18 05/23/21 09/16/18 21:30 release 24 hr losartan 100 mg tablet 100 mg PO HS 09/12/18 05/23/21 09/15/18 20:00 metoprolol succinate 50 mg 50 mg PO QA 09/12/18 05/23/21 09/17/18 08:00 tablet,extended release 24 hr nitroglycerin 0.4 mg sublingual 0.4 mg SUBLINGUAL UD PRN 09/12/18 05/23/21 Unknown tablet omeprazole 20 mg tablet,delayed 20 mg PO QAM 09/12/18 05/23/21 09/17/18 08:00 release rosuvastatin 40 mg tablet 40 mg PO HS 09/12/18 05/23/21 09/16/18 20:00 acetaminophen 500 mg tablet 1,000 mg PO Q6H PRN 05/23/21 05/23/21 Unknown amoxicillin 500 mg tablet 500 mg PO Q8H 05/23/21 05/23/21 Unknown aspirin 81 mg tablet,delayed 81 mg PO HS 05/23/21 05/23/21 Unknown release cyanocobalamin (vitamin B-12) 5,000 mcg PO Q2D 05/23/21 05/23/21 Unknown 5,000 mcg capsule empagliflozin 10 mg tablet 10 mg PO QAM 05/23/21 05/23/21 Unknown ezetimibe 10 mg tablet 10 mg PO HS 05/23/21 05/23/21 Unknown gabapentin 300 mg capsule 300 mg PO TID 05/23/21 05/23/21 Unknown hydrochlorothiazide 25 mg tablet 25 mg PO QAM 05/23/21 05/23/21 Unknown magnesium oxide 400 mg PO QAM 05/23/21 05/23/21 Unknown potassium chloride 20 mEq 20 meq PO QAM 05/23/21 05/23/21 Unknown tablet,extended release Past Medical History Medical History (Updated 05/31/21 @ 15:15 by Julia Mendieta PA-C) BPH (benign prostatic hyperplasia) Degenerative disc disease Diabetes mellitus, type 2 ORAL MED Glucose stable per patient GERD (gastroesophageal reflux disease) Well controlled and stable Hyperlipidemia Hypertension Irregular heart beat HX-NO RECENT ISSUES Myocardial Infarction 09/04/2014- S/p stent- F/U DR MONSALVE Osteoarthritis 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 Tremor WRISTS/HANDS-NO DIAGNOSIS-NO NEUROLOGY Stable Exercise / Class Metabolic Activity III < 4 Walking/Shop/Light housework (no chest pain or SOB with flat surface ambulation - uses cane to ambulate ) Past Family History Family History Mother Family history of diabetes mellitus Past Surgical History Surgical History H/O wrist surgery RT WRIST FUSION History of appendectomy History of carpal tunnel release RT/LEFT History of colonoscopy History of esophagogastroduodenoscopy (EGD) History of hand surgery RIGHT TRIGGER FINGERS History of heart artery stent 1 STENT PLACED 2014 IN [place] History of tooth extraction Nausea and vomiting after administration of anesthetic agent WITH APPENDECTOMY IN HIS 30'S Past Anesthesia History No Hx of Anesthesia Complications (with excpetion to one episode of PONV with appendectomy in 30s- no issues with subsequent surgeries ) and No Family Hx of Anesthesia Complications History of PONV No Hx of Motion Sickness and History of PONV (one episode in 30s ) Social History Smoking Status: Former smoker tobacco type: cigarettes Do You Dip or Chew Tobacco: No Smoking End Date: Quit 1966 Hx Alcohol Use: Yes Alcohol type: beer alcohol intake frequency: holidays/special occasions only Hx Substance Use: No substance use type: does not use Review of Systems Hx of snoring - no hx of sleep study Patient denies chest pain, shortness of breath, dyspnea on exertion, cough, wheezing, palpitations. No hx of seizures, stroke. No hx of blood clots or blood transfusions Physical Exam Vital Signs VITALS BP 129/75 P 69 TEMP 97.7 SP02 95% RESP 16 Constitutional no acute distress ENMT Mouth: no TMJ clicking Thyromental Distance: < 3.5 Finger Breadths (3.0) Mallampati Class: I (smaller airway ) Missing molars and side teeth Top front left tooth- capped Neck + limited neck extension (signifciant ) Respiratory normal respiratory effort; no respiratory distress Auscultation: lungs clear to auscultation bilaterally; no wheezes Cardiovascular Rate/Rhythm: regular rate and regular rhythm Heart Sounds: no murmur Vessels: no carotid bruit Musculoskeletal Spine: no pain with cervical ROM Extremities: extremities normal to inspection Psychiatric Orientation: alert Lab Results Anesthesia Preop Results Results Anesthesia Widget: WBC 8.35 K/uL (4.8-10.8) 05/31/21 Hgb 14.7 g/dL (14.0-18.0) 05/31/21 Hct 43.4 % (42-52) 05/31/21 Plt 176 K/uL (130-400) 05/31/21 Na 138 mmol/L (136-145) 05/31/21 K 3.6 mmol/L (3.5-5.1) 05/31/21 Cl 104 mmol/L (98-107) 05/31/21 CO2 27 mmol/L (21-32) 05/31/21 BUN 15 mg/dl (6-23) 05/31/21 Creat 1.03 mg/dl (0.6-1.4) 05/31/21 Glucose Level 122 mg/dl (70-99(Fasting)) H 05/31/21 PT 10.3 Seconds (9.0-12.0) 05/31/21 PTT 27.5 Seconds (21.0-31.0) 05/31/21 INR 1.0 (0.9-1.1) 05/31/21 HA1c 5.8 % (4.5-5.6) H 05/31/21 Urine Color Yellow 05/31/21 Urine Appearance Clear (Clear) 05/31/21 Urine pH 6.5 (4.5-7.5) 05/31/21 Urine Specific [place] 1.021 (1.000-1.030) 05/31/21 Urine Protein Negative (Negative) 05/31/21 Urine Glucose (UA) 3+ (Negative) H 05/31/21 Urine Ketones Negative (Negative) 05/31/21 Urine Blood Negative (Negative) 05/31/21 Urine Nitrite Negative (Negative) 05/31/21 Urine Bilirubin Negative (Negative) 05/31/21 Urine Urobilinogen Negative (Negative) 05/31/21 Urine Leukocyte Esterase Negative (Negative) 05/31/21 Blood Type A Positive 05/31/21 Antibody Screen NEGATIVE 05/31/21 Testing Electrocardiogram Date: 05/31/21 Bradycardia with first-degree AV block at 59 bpm. Left anterior fascicular block. When compared to EKG from September 12, 2017no significant changes found per cardio. Chest X-Ray Date: 05/31/21 Findings: + NAD Echocardiogram Date: 04/16/19 EF: 60-65% LV Function: normal RWMA: + none Other Findings: + LVH (Mild/concentric); no diastolic dysfunction Valvular Disease: + no significant valvular disease No ventricular septal defect. No PFO/ASD identified. Mild pulmonary hypertension. Stress Test Date: 10/26/20 Type: nuclear Pharmacologic stress nuclear study is normal. Normal SPECT perfusion imaging. No significant ischemia detected. No evidence of infarct. Stress EKG results are normal. Normal left ventricular systolic function. Gated study showed the EF was 60-65%. Recommendations: Recommend medical treatment.
[~2021-06-21 06:14] MED LIST changes: -CEFAZOLIN 2000MG 2,000 MG/15 ML SYR IV SCH; +GABAPENTIN 300 MG CAP PO SCH; -GABAPENTIN 300 MG PO SCH; +ceFAZolin 2000MG 2,000 MG/15 ML SYR IV SCH
[2021-06-21] MEDS ORDERED: PROPOFOL IV EMULSION 10 MG/ML 20 ML VIAL IV ONE (06:48)
[2021-06-21] MEDS ORDERED: ROCURONIUM BROMIDE 10 MG/ML 5 ML VIAL IV ONE ×2 (06:48→08:38)
[2021-06-21] MEDS ORDERED: MIDAZOLAM HCL 1 MG/ML 2ML VIAL ONE (06:49)
[2021-06-21] MEDS ORDERED: fentaNYL citrate 100 MCG/2 ML VIAL ONE ×2 (06:49)
[2021-06-21] MEDS ORDERED: ATROPINE SULFATE 0.1 MG/ML 10ML SYR IV PRN (07:04)
[2021-06-21] MEDS ORDERED: ONDANSETRON INJ 2 MG/ML 2 ML VIAL IV PRN ×2 (07:04→11:39)
[2021-06-21] MEDS ORDERED: PROMETHAZINE HCL 12.5 MG in SODIUM CHLORIDE 0.9% 50 ML IV PRN ×2 (07:04→11:39)
[2021-06-21] MEDS ORDERED: BUPIVACAINE 0.5 % 5 MG/1 ML MPF 30ML VIAL ONE (07:16)
[2021-06-21] MEDS ORDERED: EPINEPHrine INJ 1 MG/ML AMP ONE (07:16)
[2021-06-21] MEDS ORDERED: ceFAZolin 330 MG/ML 1 GM VIAL ONE (07:16)
--- NOTE | 2021-06-21 07:29 | History & Physical Bridge Note ---
Date of Service June 21, 2021 History & Physical Bridge Note I have examined the patient, reviewed the History & Physical and in the interval since the performance of the History & Physical I have noted the following changes of clinical significance: no changes noted
--- NOTE | 2021-06-21 07:30 | History & Physical Report ---
Date of Service June 21, 2021 Assessment & Plan (1) Spinal stenosis, lumbar region with neurogenic claudication: Plan: L2-L3 and L4-5 decompression fusion, L3-L4 hardware removal History of Present Illness Chief Complaint: Back and bilateral leg pain Primary Care Provider: Martin Rothman This is a 75-year-old male presents with current persistent back and leg pain. Failing course of nonoperative care is here for surgical invention. Allergies Allergy/AdvReac Type Severity Reaction Status Date / Time procaine [From Novocain] AdvReac Mild "got slow Verified 06/21/21 06:47 all over feeling"-HAPPY Home Medications Medication Instructions Recorded Confirmed Type alfuzosin 10 mg tablet,extended 10 mg PO HS 09/12/18 06/21/21 History release 24 hr (Uroxatral) losartan 100 mg tablet 100 mg PO HS 09/12/18 06/21/21 History metoprolol succinate 50 mg 50 mg PO QAM 09/12/18 05/23/21 History tablet,extended release 24 hr nitroglycerin 0.4 mg sublingual 0.4 mg SUBLINGUAL UD PRN 09/12/18 06/21/21 History tablet omeprazole 20 mg tablet,delayed 20 mg PO QAM 09/12/18 05/23/21 History release rosuvastatin 40 mg tablet 40 mg PO HS 09/12/18 06/21/21 History acetaminophen 500 mg tablet 1,000 mg PO Q6H PRN 05/23/21 06/21/21 History amoxicillin 500 mg tablet 500 mg PO Q8H 05/23/21 06/21/21 History aspirin 81 mg tablet,delayed 81 mg PO HS 05/23/21 06/21/21 History release cyanocobalamin (vitamin B-12) 5,000 mcg PO Q2D 05/23/21 06/21/21 History 5,000 mcg capsule empagliflozin 10 mg tablet 10 mg PO QAM 05/23/21 06/21/21 History (Jardiance) ezetimibe 10 mg tablet 10 mg PO HS 05/23/21 06/21/21 History gabapentin 300 mg capsule 300 mg PO TID 05/23/21 06/21/21 History hydrochlorothiazide 25 mg tablet 25 mg PO QAM 05/23/21 06/21/21 History magnesium oxide 400 mg PO QAM 05/23/21 06/21/21 History potassium chloride 20 mEq 20 meq PO QAM 05/23/21 06/21/21 History tablet,extended release Past Med/Surg History Medical History BPH (benign prostatic hyperplasia) Degenerative disc disease Diabetes mellitus, type 2 ORAL MED Glucose stable per patient GERD (gastroesophageal reflux disease) Well controlled and stable Hyperlipidemia Hypertension Irregular heart beat HX-NO RECENT ISSUES Myocardial Infarction 09/04/2014- S/p stent- F/U DR MONSALVE Osteoarthritis 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 Tremor WRISTS/HANDS-NO DIAGNOSIS-NO NEUROLOGY Stable Surgical History H/O wrist surgery RT WRIST FUSION History of appendectomy History of carpal tunnel release RT/LEFT History of colonoscopy History of esophagogastroduodenoscopy (EGD) History of hand surgery RIGHT TRIGGER FINGERS History of heart artery stent 1 STENT PLACED 2014 IN [place] History of tooth extraction Nausea and vomiting after administration of anesthetic agent WITH APPENDECTOMY IN HIS 30'S Family History Mother Family history of diabetes mellitus Social History Smoking Status: Former smoker Smoking End Date: Quit 1966; Second Hand Exposure: No; Do You Dip or Chew Tobacco: No; Hx Alcohol Use: Yes Alcohol type: beer Hx Substance Use: No Preferred Language: Wolof Communication Ability: Effective Hearing Ability: Hard of Hearing Efficiency Expert Required: No Beliefs That Will Affect Care: None Current Living Situation: Alone current occupational status: retired Other Information That Helps Us Care for You: No Feels Safe at Home: Yes Safety Concerns: Feels Safe At This Time Assistive Devices: Cane, Glasses and Hearing Aid - Bilateral Assistive Devices Comment: CANE PRN Physical Exam Physical Exam: Patient is alert and oriented Heart regular rhythm Lungs clear Results & Data ([facility]) Vital Signs (Past 12 Hours) Vital Signs Temp Resp BP Pulse Ox 06/21/21 06:52 37.0 C 18 136/92 95
[2021-06-21] MEDS ORDERED: LIDOCAINE 2% 20 MG/ML 5 ML SYR IV ONE (08:38)
[2021-06-21] MEDS ORDERED: FLOSEAL HEMOSTATIC MATRIX 10ML TOP ONE (08:40)
[2021-06-21] MEDS ORDERED: ONDANSETRON INJ 2 MG/ML 2 ML VIAL ONE ×2 (08:44→10:28)
[2021-06-21] MEDS ORDERED: DEXAMETHASONE SOD INJ 4 MG/ML VIAL ONE (08:44)
[2021-06-21] MEDS ORDERED: GLYCOPYRROLATE 0.2 MG/ML VIAL ONE (10:06)
[2021-06-21] MEDS ORDERED: NEOSTIGMINE METHYLSULFATE 1 MG/ML 10ML VIAL ONE (10:06)
--- NOTE | 2021-06-21 10:13 | Fluoroscopy Report ---
FL lumbar spine 2-3V CLINICAL HISTORY: L2-3, L4-5 DECOMPRESSION AND FUSION - L3-4 HARDWARE REMOVAL COMPARISON STUDY: Lumbar spine series 519. FLUOROSCOPY TIME: 18 seconds. FINDINGS: 3 fluoroscopic spot images of the lumbar spine demonstrate posterior decompression and fusi on from L2 through L5 with pedicle screws and rods. There are disc spacers in place. The hardware jacinda ears intact. IMPRESSION: Fluoroscopic assistance provided for posterior fusion within the lumbar spine. ACT 112: Negative or not required by law. Electronically signed by: Bob Rodriguez M.D. 06/21/2021 10:12 AM
--- NOTE | 2021-06-21 10:27 | Operative Report ---
Post Operative Report Pre & Post Diagnosis Operation Date: 06/21/21 07:45 Pre-Op Diagnosis: Spinal Stenosis, Lumbar Region with Neurogenic Post-Op Diagnosis: Spinal Stenosis, Lumbar Region with Neurogenic I identified the patient and participated in the time-out.: Yes Procedure Operation Date: 06/21/21 07:45 Actual Procedures #1 removal of posterior instrumentation L3-L4. #2 exploration of fusion L3-L4. #3 lumbar decompression with bilateral medial facetectomies and foraminotomies L1-L2 L2 L3-L4-L5. #4 posterior spinal fusion L2-3 L4-5 #5 placement posterior instrumentation L2-L5. #6 interbody fusion L2 L3-L4-L5. #7 placement of titanium cage 13 x 26 mm at L2-L3 and 15 x 26 mm at L4-5. #8 placement locally harvested morselized autograft in the posterior gutters. #9 placement infuse collagen sponge, master graft in the posterior lateral gutters and I factor interbody space. Surgeon Joon Small, DO Resident Care Supervisor None Estimated Blood Loss 500 Findings See Below The patient is 5 foot 5 inches tall weighing 103 kg with a BMI in excess of 37. The patient's body habitus did contribute to significant technical difficulty requiring her deepest retractors longus instruments in order to perform his procedure. This had at least 50% increased operative time. Specimens None Indications This is a 75-year-old male presents with bulge diagnosis after failing course of nonoperative care is here for the above-mentioned procedure. Description of Procedure Patient met with identified informed consent obtained. Patient was then taken to the operative suite underwent a patient placed in a prone position the [place] table top Young frame. All bony prominences well-padded eyes inspected to ensure no external pressure placed upon the. This point the lumbar spine was prepped and draped in the normal sterile fashion. Sharp dissection with the assistance of Bovie cautery was performed down to and exposing the lamina and transverse processes of L2 instrumentation at L3-L4 and the lamina transverse processes of L5. I then proceeded to move the hardware bilaterally explore the fusion mass at L3-L4 noting it appeared to be mature and intact. Then performed a complete laminectomy of of L4 followed by L2 and partial laminectomy of L1 in cluding bilateral medial facetectomies and foraminotomies addressing severe spinal stenosis. Pedicle screws then placed in L2 L3-L4-L5 bilaterally with assistance of fluoroscopy and appropriate sized greg placed. Bilateral transforaminal portion of right complete discectomy of L4-L5 was performed endplates curetted to subcortical being bone and a 15 x 26 mm titanium cage filled with I factor tamped position. Then proceeded to L to L3 and again by way of a transforaminal portion right complete discectomy was performed endplates curetted to subcortical bone bone and a 13 x 26 mm titanium cage filled I factor tapped in position. The rods were then compressed locked in final position bilaterally. The transverse processes of L to L3 L4-5 burred to subcortically bone. Infuse collagen sponge master graft lobe autograft was placed in the posterior gutters. 15 round SERJIO drain inserted. The incision was then closed with 1 Vicryl in the fascia 2-0 Vicryl subcutaneously and 4 Monocryl for final skin closure. Steri-Strip sterile dressings placed. Patient will continue PACU stable condition. Please note spinal cord monitoring was utilized at the procedure no changes noted. I attest to the content of the Intraoperative Record and any orders documented therein. Any exceptions are noted below.
[2021-06-21] MEDS: HYDROmorphone INJ 1 MG/ML SYRINGE IV PRN ×4 (10:45→11:00)
--- NOTE | 2021-06-21 11:04 | Anesthesiology Progress Note ---
Date of Service June 21, 2021 Anesthesia Post Procedure Vital Signs Vital Signs: Temp Pulse Resp BP BP Pulse Ox 06/21/21 11:00 61 14 105/62 94 06/21/21 10:50 61 12 104/62 95 06/21/21 10:40 66 14 110/70 97 06/21/21 10:33 37.0 C 68 11 L 126/68 94 06/21/21 06:52 37.0 C 18 136/92 95 Pain Intensity Back: Pain Intensity: 5 Transfer of Care Handoff Completed per policy Notes Mental Status: alert / awake / arousable Patient Amnestic to Procedure: Yes Nausea / Vomiting: adequately controlled Pain: adequately controlled Airway Patency, RR, SpO2: stable & adequate BP & HR: stable & adequate Hydration State: stable & adequate Anesthetic Complications: no major complications apparent
[2021-06-21] MEDS ORDERED: NITROGLYCERIN SL 0.4 MG/TAB TAB SL PRN (11:39)
[2021-06-21] MEDS ORDERED: ACETAMINOPHEN 1,000 MG/100 ML VIAL IV PRN (11:39)
[2021-06-21] MEDS ORDERED: PHARMACY GLYCEMIC MGMT CONSULT PRN (11:39)
[2021-06-21] MEDS ORDERED: LORazepam 0.5 MG TAB PO PRN (11:39)
[2021-06-21] MEDS ORDERED: METOCLOPRAMIDE HCL INJ 5 MG/ML 2 ML VIAL IV PRN (11:39)
[2021-06-21] MEDS ORDERED: ONDANSETRON 4 MG OD TAB PO PRN (11:39)
[2021-06-21] MEDS ORDERED: MAGNESIUM HYDROXIDE SUSP 30 ML UDC PO PRN (11:39)
[2021-06-21] MEDS ORDERED: oxyCODONE HCL IR 5 MG TAB (IMMEDIATE RELEASE) PO PRN (11:39)
[2021-06-21] MEDS ORDERED: bisacodyL 10 MG SUPP PR PRN (11:39)
[2021-06-21] MEDS ORDERED: hydrOXYzine HCl 25 MG TAB PO PRN (11:39)
[2021-06-21] MEDS ORDERED: ALUMINUM/MAGNESIUM SUSP 30 ML UDC PO PRN (11:39)
[2021-06-21] MEDS ORDERED: traMADol HCL 50 MG TABLET PO PRN (11:39)
[2021-06-21] MEDS ORDERED: HYDROmorphone INJ 0.5 MG/0.5 ML SYR IV PRN (11:39)
[2021-06-21] MEDS ORDERED: LORazepam 2 MG/1 ML VIAL IV PRN (11:39)
[2021-06-21] MEDS ORDERED: SOD PHOSPHATE/SOD BIPHOSPHATE ENEMA 132 ML BTL PR PRN (11:39)
[2021-06-21] MEDS ORDERED: FAMOTIDINE 20 MG TAB PO PRN (11:39)
[2021-06-21] MEDS ORDERED: DO NOT ADMINISTER FLU VACCINE PRN (11:39)
[2021-06-21] MEDS ORDERED: HYDROmorphone INJ 1 MG/ML SYRINGE IV PRN (11:39)
[2021-06-21] MEDS ORDERED: diphenhydrAMINE Capsule 25 MG CAP PO PRN (11:39)
[2021-06-21] MEDS ORDERED: NALOXONE HCL 0.4 MG/1 ML VIAL/CARP IV PRN (11:39)
[2021-06-21] MEDS ORDERED: DO NOT ADMINISTER PNEUMOCOCCAL VACCINE PRN (11:39)
[2021-06-21] MEDS: SODIUM CHLORIDE 0.9% 1000ML 1,000 ML IV SCH ×2 (12:39→18:36)
[2021-06-21] MEDS ORDERED: GLUCOSE 10 TABS/TUBE PO PRN (12:45)
[2021-06-21] MEDS ORDERED: CARBOHYDRATES FOR HYPOGLYCEMIA PO PRN (12:45)
[2021-06-21] MEDS ORDERED: GLUCOSE 40% GEL 15 GM TUBE PO PRN (12:45)
[2021-06-21] MEDS ORDERED: GLUCAGON FOR INJ 1 MG VIAL IM PRN (12:45)
[2021-06-21] MEDS ORDERED: DEXTROSE 50% 50 ML SYRINGE IV PRN (12:45)
--- NOTE | 2021-06-21 13:10 | Hospitalist Consultation ---
Date of Consultation June 21, 2021 Assessment & Plan (1) Spinal stenosis, lumbar region with neurogenic claudication: As per HPI- POD # 0 - Pain control per primary service - Rescue Narcan is on chart - ABX per primary service - DVT prophylaxis per primary service - IVF per primary service - Incision/drain care per primary service - Gaxiola per primary service - Bowel regime available (2) CAD (coronary artery disease), soboba coronary artery: CAD with AMI in 2015 and Stenting to LAD in 2019 - Continue BB - Hold Cozaar 100mg tonight- follow renal indices in morning- likely able to restart - BP very acceptable at this time - ASA restart when hemostasis ensured by primary service- ordered to restart in 06/21/21 by primary - No current symptoms of angina (3) Diabetes mellitus, type 2: On Jardiance at home- - Pharmacy consult placed for glycemic control by primary service - Follow (4) CHF (congestive heart failure): ICM with Grade I diastolic dysfunction- not acute exacerbation- stable - ECHO reports from clearance- ECHO 04/04- EF 55-60% thickened AV, mod MR, (5) Hyperlipidemia: Cotninue statin - Cartoids reported <50% 04/04 bilaterally (6) GERD (gastroesophageal reflux disease): Protonix increased to 40mg PO BID while postoperative - can reduce back to daily when tolerating adequate diet and no more steroids - H2 discontinued (7) Degenerative disc disease: As above - Continue gabapentin 300 TID (8) BPH (benign prostatic hyperplasia): Continue Alfuzosin - Discontinue gaxiola catheter likely in the morning Supervising Physician Co-Signing Physician Notes I supervised TANI Turner on the care of this patient. I interviewed and examined the patient independently of him. The plan is as written in his note except for any following changes/exceptions: None Seen today after surgery. Doing well. Minimal pain after surgery. Post-op care per primary team. Will follow BP and other medical issues. History of Present Illness Reason for Consultation: Medical Management Requesting Physician: Staci Barney Attending Physician: Joon Small DO History of Present Illness 75 YOM with past medical history of: CAD with coronary stenting x3 LAD (2019), ICM with Grade I diastolic dysfunction, HTN, DM II, HLD, GERD, BPH, Obesity. Patient is POD #0 from L2-L3/L4/L5 decompression with fusion and removal of old L3-L4 hardware secondary to spinal stenosis with neurogenic claudication under general anesthesia. EBL reported 500ml. Patient was evaluated in his room postoperatively, where he is briskly awake and finishing his lunch. He denies currently any nausea and/or vomiting and pain is controlled at the current time. Most of his pain is on the left side just above the waist. He has full sensation and movement of all extremities. Vital signs reviewed, medical history reviewed, ECG reviewed from 06/14/21, and Medical Clearance reviewed with most recent ECHO results. Recommendations - Glycemic consult already placed by primary service- Pharmacy managing- Eva held - Hold HERMINIO ahumada with following of renal indices in the morning - Changed Protonix 40mg to BID - discontinued H2 ghanshyam- - Pain medication with bowel regime already ordered and rescue Narcan Available- agree Allergies Allergy/AdvReac Type Severity Reaction Status Date / Time procaine [From Novocain] AdvReac Mild "got slow Verified 06/21/21 06:47 all over feeling"-HAPPY Home Medications Medication Instructions Recorded Confirmed Type alfuzosin 10 mg tablet,extended 10 mg PO HS 09/12/18 06/21/21 History release 24 hr (Uroxatral) losartan 100 mg tablet 100 mg PO HS 09/12/18 06/21/21 History metoprolol succinate 50 mg 50 mg PO QAM 09/12/18 05/23/21 History tablet,extended release 24 hr nitroglycerin 0.4 mg sublingual 0.4 mg SUBLINGUAL UD PRN 09/12/18 06/21/21 History tablet omeprazole 20 mg tablet,delayed 20 mg PO QAM 09/12/18 05/23/21 History release rosuvastatin 40 mg tablet 40 mg PO HS 09/12/18 06/21/21 History acetaminophen 500 mg tablet 1,000 mg PO Q6H PRN 05/23/21 06/21/21 History amoxicillin 500 mg tablet 500 mg PO Q8H 05/23/21 06/21/21 History aspirin 81 mg tablet,delayed 81 mg PO HS 05/23/21 06/21/21 History release cyanocobalamin (vitamin B-12) 5,000 mcg PO Q2D 05/23/21 06/21/21 History 5,000 mcg capsule empagliflozin 10 mg tablet 10 mg PO QAM 05/23/21 06/21/21 History (Jardiance) ezetimibe 10 mg tablet 10 mg PO HS 05/23/21 06/21/21 History gabapentin 300 mg capsule 300 mg PO TID 05/23/21 06/21/21 History hydrochlorothiazide 25 mg tablet 25 mg PO QAM 05/23/21 06/21/21 History magnesium oxide 400 mg PO QAM 05/23/21 06/21/21 History potassium chloride 20 mEq 20 meq PO QAM 05/23/21 06/21/21 History tablet,extended release oxycodone 5 mg tablet 5 mg PO Q6H PRN #30 tab 06/21/21 Rx tramadol 50 mg tablet 50 mg PO Q6H PRN #30 tab 06/21/21 Rx Patient History Medical History (Updated 06/21/21 @ 13:18 by TANI Cramer) BPH (benign prostatic hyperplasia) CAD (coronary artery disease), soboba coronary artery Degenerative disc disease Diabetes mellitus, type 2 ORAL MED Glucose stable per patient GERD (gastroesophageal reflux disease) Well controlled and stable GERD (gastroesophageal reflux disease) Hyperlipidemia Hypertension Irregular heart beat HX-NO RECENT ISSUES Myocardial Infarction 09/04/2014- S/p stent- F/U DR MONSALVE Osteoarthritis 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 Tremor WRISTS/HANDS-NO DIAGNOSIS-NO NEUROLOGY Stable Surgical History H/O wrist surgery RT WRIST FUSION History of appendectomy History of carpal tunnel release RT/LEFT History of colonoscopy History of esophagogastroduodenoscopy (EGD) History of hand surgery RIGHT TRIGGER FINGERS History of heart artery stent 1 STENT PLACED 2014 IN [place] History of tooth extraction Nausea and vomiting after administration of anesthetic agent WITH APPENDECTOMY IN HIS 30'S Family History Mother Family history of diabetes mellitus Social History Smoking Status: Former smoker Smoking End Date: Quit 1966; Second Hand Exposure: No; Do You Dip or Chew Tobacco: No; Hx Alcohol Use: Yes Alcohol type: beer Hx Substance Use: No Preferred Language: Moroccan Communication Ability: Effective Hearing Ability: Hard of Hearing Cosmetology Instructor Required: No Beliefs That Will Affect Care: None Current Living Situation: Alone current occupational status: retired Other Information That Helps Us Care for You: No Feels Safe at Home: Yes Safety Concerns: Feels Safe At This Time Assistive Devices: Walker Assistive Devices Comment: MARCELINO DOVE Review of Systems Review of Systems: REVIEW OF SYSTEMS: Constitutional: No fever, sweats or chills Eyes: No diplopia, no worsening or blurred vision ENT: normal hearing, no trouble swallowing Respiratory: No cough, sputum, dyspnea at rest or on exertion Cardiovascular: No chest pain, tightness or palpitations Abdomen: No pain, nausea, vomiting, diarrhea or constipation Musculoskeletal: (+) back pain with leg fatigue, Neurologic: No weakness, numbness/tingling, or balance problems Psychiatric: No anxiety or depression Skin: No rash or itch Physical Exam Physical Exam: PHYSICAL EXAM: General: awake, alert, no apparent distress Head: Normocephalic, atraumatic ENT: PERRL, EOMI, no pharyngeal exudate, mucous membranes moist Neuro: AAO x 3, speech clear and appropriate, strength intact bilaterally 5/5, sensation intact and equal all extremities and dermatomes, no pronator drift Chest: equal rise and fall of the chest, no accessory muscle use, no heaves or thrills, Clear to auscultation, on room air, Cardiac: Regular rate and rhythm, S1S2 skin warm dry, cap refill <3 seconds, peripheral pulses +2 no JVD, Grade II systolic murmur, no JVD, no edema GI: NABS x 4 quadrants, soft, tympanic on percussion, nontender to palpation, no rebound, guarding or tenderness : Gaxiola to gravity, no pain, no CVA tenderness, Extremities: Normal inspection, no peripheral edema or erythema, calfs nontender to palpation, TEDS/SCDS on Psych: Normal mood and affect Skin: no rash or erythema Results & Data Results & Data ([facility]) Vital Signs (Past 12 Hours) Vital Signs Temp Pulse Pulse Resp BP BP Pulse Ox 06/21/21 12:33 36.3 C L 63 16 127/73 98 06/21/21 12:11 36.3 C L 52 L 16 106/66 95 06/21/21 11:20 37.0 C 58 L 14 100/56 L 93 06/21/21 11:10 61 12 100/66 96 06/21/21 11:00 61 14 105/62 94 06/21/21 10:50 61 12 104/62 95 06/21/21 10:40 66 14 110/70 97 06/21/21 10:33 37.0 C 68 11 L 126/68 94 06/21/21 06:52 37.0 C 18 136/92 95 Laboratory Results Abnormal lab results 06/21/21 06/21/21 06/21/21 Range/Units 06:37 07:03 10:41 POC Glucose 107 H 129 H (70-99) mg/dl Crossmatch See Detail 06/21/21 Range/Units 12:10 POC Glucose 119 H (70-99) mg/dl Crossmatch Diagnostic Findings Lumbar Spine X-Ray 06/21/21 07:45 FL lumbar spine 2-3V CLINICAL HISTORY: L2-3, L4-5 DECOMPRESSION AND FUSION - L3-4 HARDWARE REMOVAL COMPARISON STUDY: Lumbar spine series 519. FLUOROSCOPY TIME: 18 seconds. FINDINGS: 3 fluoroscopic spot images of the lumbar spine demonstrate posterior decompression and fusion from L2 through L5 with pedicle screws and rods. There are disc spacers in place. The hardware appears intact. IMPRESSION: Fluoroscopic assistance provided for posterior fusion within the lumbar spine. ACT 112: Negative or not required by law. Electronically signed by: Bob Rodriguez M.D. 06/21/2021 10:12 AM Medications Administered Home Medications alfuzosin 10 mg tablet,extended release 24 hr (Uroxatral) 10 mg PO 09/12/18 [History Confirmed 06/21/21] losartan 100 mg tablet 100 mg PO 09/12/18 [History Confirmed 06/21/21] metoprolol succinate 50 mg tablet,extended release 24 hr 50 mg PO [facility] 09/12/18 [History Confirmed 05/23/21] nitroglycerin 0.4 mg sublingual tablet 0.4 mg SUBLINGUAL UD PRN 09/12/18 [History Confirmed 06/21/21] omeprazole 20 mg tablet,delayed release 20 mg PO [facility] 09/12/18 [History Confirmed 05/23/21] rosuvastatin 40 mg tablet 40 mg PO 09/12/18 [History Confirmed 06/21/21] acetaminophen 500 mg tablet 1,000 mg PO Q6H PRN 05/23/21 [History Confirmed 06/21/21] amoxicillin 500 mg tablet 500 mg PO Q8H 05/23/21 [History Confirmed 06/21/21] aspirin 81 mg tablet,delayed release 81 mg PO HS 05/23/21 [History Confirmed ] cyanocobalamin (vitamin B-12) 5,000 mcg capsule 5,000 mcg PO Q2D 05/23/21 [History Confirmed 06/21/21] empagliflozin 10 mg tablet (Jardiance) 10 mg PO QAM 05/23/21 [History Confirmed 06/21/21] ezetimibe 10 mg tablet 10 mg PO HS 05/23/21 [History Confirmed 06/21/21] gabapentin 300 mg capsule 300 mg PO TID 05/23/21 [History Confirmed 06/21/21] hydrochlorothiazide 25 mg tablet 25 mg PO QAM 05/23/21 [History Confirmed 06/21/21] magnesium oxide 400 mg PO QAM 05/23/21 [History Confirmed 06/21/21] potassium chloride 20 mEq tablet,extended release 20 meq PO QAM 05/23/21 [History Confirmed 06/21/21] oxycodone 5 mg tablet 5 mg PO Q6H PRN #30 tab 06/21/21 [Rx] tramadol 50 mg tablet 50 mg PO Q6H PRN #30 tab 06/21/21 [Rx] Active Medications Acetaminophen (Acetaminophen 500 Mg Tab) 1,000 mg PO PREOP MARINE Stop: 06/21/21 18:00 Last Admin: 06/21/21 06:48 Dose: 1,000 mg Documented by: Acetaminophen (Acetaminophen 500 Mg Tab) 1,000 mg PO Q8H PRN PRN Reason: MILD Pain Scale 1,2,3 & Pre PT Stop: 07/21/21 11:38 Al Hydrox/Mg Hydrox/Simethicone (Aluminum/Magnesium Susp 30 Ml Udc) 30 ml PO Q6H PRN PRN Reason: Dyspepsia Stop: 07/21/21 11:38 Alfuzosin HCl (Alfuzosin Hcl 10 Mg Tab) 10 mg PO MARINE Stop: 07/21/21 20:59 Aspirin (Aspirin 81 Mg Ectab) 81 mg PO [facility] Stop: 07/21/21 20:59 Bisacodyl (Bisacodyl 10 Mg Supp) 10 mg CO DAILY PRN PRN Reason: Constipation Stop: 07/21/21 11:38 Celecoxib (Celebrex 200 Mg Cap) 200 mg PO PREOP MARINE Stop: 06/21/21 18:00 Last Admin: 06/21/21 06:48 Dose: 200 mg Documented by: Cyanocobalamin (Cyanocobalamin (B-12) 2,500 Mcg Tablet) 5,000 mcg SL Q48H MARINE Stop: 07/21/21 12:29 Dextrose (Dextrose 50% 50 Ml Syringe) 25 - 50 ml IV UD PRN; Protocol PRN Reason: Hypoglycemia Protocol Stop: 07/21/21 12:44 Diphenhydramine HCl (Diphenhydramine Capsule 25 Mg Cap) 25 mg PO Q6H PRN PRN Reason: Allergic Rhinitis/Insomnia Stop: 07/21/21 11:38 Ezetimibe (Ezetimibe 10 Mg Tablet) 10 mg PO HS MARINE Stop: 07/21/21 20:59 Gabapentin (Gabapentin 300 Mg Cap) 300 mg PO PREOP MARINE Stop: 06/21/21 18:00 Last Admin: 06/21/21 06:48 Dose: 300 mg Documented by: Gabapentin (Gabapentin 300 Mg Cap) 300 mg PO TID MARINE Stop: 07/21/21 13:59 Glucagon (Glucagon For Inj 1 Mg Vial) 1 mg IM UD PRN; Protocol PRN Reason: Hypoglycemia Protocol Stop: 07/21/21 12:44 Glucose (Glucose 40% Gel 15 Gm Tube) 15 - 30 gm PO UD PRN; Protocol PRN Reason: Hypoglycemia Protocol Stop: 07/21/21 12:44 Glucose (Glucose 10 Tabs/Tube) 4 - 8 tabs PO UD PRN; Protocol PRN Reason: Hypoglycemia Protocol Stop: 07/21/21 12:44 Hydrochlorothiazide (Hydrochlorothiazide 25 Mg Tab) 25 mg PO QAM MARINE Stop: 07/22/21 08:59 Hydromorphone HCl (Hydromorphone Inj 0.5 Mg/0.5 Ml Syr) 0.5 mg IV Q3H PRN PRN Reason: MODERATE Pain (Scale 4,5,6) & Pre PT Stop: 07/05/21 11:38 Hydromorphone HCl (Hydromorphone Inj 1 Mg/Ml Syringe) 1 mg IV Q3H PRN PRN Reason: SEVERE Pain (Scale 7,8,9,10) Stop: 07/05/21 11:38 Hydroxyzine HCl (Hydroxyzine Hcl 25 Mg Tab) 25 mg PO Q8H PRN PRN Reason: Anxiety Stop: 07/21/21 11:38 Lactated Ringer's (Lr) 1,000 mls @ 15 mls/hr IV .Q24H MARINE Stop: 06/22/21 05:59 Last Infusion: 06/21/21 07:43 Dose: Infused Documented by: Cefazolin Sodium (Ancef 2000mg) 2,000 mg in 15 mls @ 3.75 mls/min IV PREOP MARINE; Protocol Stop: 06/21/21 18:00 Last Admin: 06/21/21 07:43 Dose: 3.75 mls/min Documented by: Cefazolin Sodium (Ancef 2000mg) 2,000 mg in 15 mls @ 3.75 mls/min IV Q8H MARINE; Protocol Stop: 06/22/21 00:33 Sodium Chloride (Nss 1000ml) 1,000 mls @ 150 mls/hr IV .Q6H40M [facility] Stop: 07/21/21 11:38 Last Admin: 06/21/21 12:39 Dose: 150 mls/hr Documented by: Promethazine HCl 12.5 mg/ (Sodium Chloride) 50.5 mls @ 202 mls/hr IV Q6H PRN PRN Reason: Nausea &/or Vomiting Stop: 07/21/21 11:38 Acetaminophen (Ofirmev) 1,000 mg in 100 mls @ 400 mls/hr IV Q8H PRN PRN Reason: Pain Rating 1-3 & Pre PT Stop: 06/24/21 11:38 Influenza Virus Vaccine Quadrival (Do Not Administer Flu Vaccine) 1 ea N/A PRN PRN PRN Reason: Notification Stop: 07/21/21 11:38 Insulin Aspart (Insulin Aspart Per Unit) 0 units SC ACHS [facility] Stop: 07/21/21 12:29 Lorazepam (Lorazepam 0.5 Mg Tab) 0.5 mg PO Q8H PRN PRN Reason: Sedation/Anxiety Stop: 07/21/21 11:38 Lorazepam (Lorazepam 2 Mg/1 Ml Vial) 0.5 mg IV Q8H PRN PRN Reason: Sedation/Anxiety Stop: 07/21/21 11:38 Losartan Potassium (Losartan Potassium 50 Mg Tab) 100 mg PO HS [facility] Stop: 07/21/21 20:59 Magnesium Hydroxide (Magnesium Hydroxide Susp 30 Ml Udc) 30 ml PO Q24H PRN PRN Reason: Constipation Stop: 07/21/21 11:38 Magnesium Oxide (Magnesium Oxide 400 Mg Tab) 400 mg PO QAM [facility] Stop: 07/22/21 08:59 Metoclopramide HCl (Metoclopramide Hcl Inj 5 Mg/Ml 2 Ml Vial) 10 mg IV Q6H PRN PRN Reason: Nausea &/or Vomiting Stop: 07/21/21 11:38 Metoprolol Succinate (Metoprolol Succ 50mg Ext Rel Tab) 50 mg PO QAM [facility] Stop: 07/22/21 08:59 Miscellaneous (Carbohydrates For Hypoglycemia ) 15 - 30 gm PO UD PRN PRN Reason: Hypoglycemia Treatment Stop: 07/21/21 12:44 Miscellaneous Information (Pharmacy Glycemic Mgmt Consult) 1 ea N/A UD PRN PRN Reason: Consult Stop: 07/21/21 11:38 Naloxone HCl (Naloxone Hcl 0.4 Mg/1 Ml Vial/Carp) 0.1 mg IV Q5M PRN PRN Reason: Oversedation/Resp depression Stop: 07/21/21 11:38 Nitroglycerin (Nitroglycerin Sl 0.4 Mg/Tab Tab) 0.4 mg SL UD PRN PRN Reason: Chest Pain Stop: 07/21/21 11:38 Ondansetron HCl (Ondansetron Inj 2 Mg/Ml 2 Ml Vial) 4 mg IV Q6H PRN PRN Reason: Nausea &/or Vomiting Stop: 07/21/21 11:38 Ondansetron HCl (Ondansetron 4 Mg Od Tab) 4 mg PO Q6H PRN PRN Reason: Nausea Stop: 07/21/21 11:38 Oxycodone HCl (Oxycodone Hcl Ir 5 Mg Tab (Immediate Release)) 5 - 10 mg PO Q4H PRN PRN Reason: Pain & Pre PT Stop: 07/05/21 11:38 Pantoprazole Sodium (Pantoprazole 40 Mg Tab) 40 mg PO BID [facility]; Protocol Stop: 07/21/21 20:59 Pneumococcal Polyvalent Vaccine (Do Not Administer Pneumococcal Vaccine) 1 ea N/A PRN PRN PRN Reason: Notification Stop: 07/21/21 11:38 Polyethylene Glycol (Polyethylene (Miralax) 17 Gm Pack) 17 gm PO Q6 [facility] Stop: 07/22/21 05:59 Potassium Chloride (Potassium Chloride Crtab 20 Meq Tabcr) 20 meq PO QAM [facility] Stop: 07/22/21 08:59 Rosuvastatin Calcium (Rosuvastatin Calcium 20 Mg Tab) 40 mg PO HS [facility] Stop: 07/21/21 20:59 Senna/Docusate Sodium (Docusate Sodium/Senna 50/8.6mg Tab) 2 tab PO HS [facility] Stop: 07/21/21 20:59 Sodium Biphosphate/Sodium Phosphate (Sod Phosphate/Sod Biphosphate Enema 132 Ml Btl) 132 ml CO ONE PRN PRN Reason: Constipation Stop: 07/21/21 11:38 Tramadol HCl (Tramadol Hcl 50 Mg Tablet) 50 - 100 mg PO Q4H PRN PRN Reason: Moderate-Severe pain & Pre PT Stop: 07/21/21 11:38 PG Care Time/CCT Total # of Minutes Spent Total Time Spent with Patient: Total time spent is greater than 50% in coordination of care (as documented) at patient's floor/unit and/or counseling patient: Coding Level of Care Code 56326 Office/OBS Consult Lvl 3 Diagnoses CAD (coronary artery disease), soboba coronary artery I25.10 CHF (congestive heart failure) I50.9 GERD (gastroesophageal reflux disease) K21.9 Spinal stenosis, lumbar region with neurogenic claudication M48.062 Degenerative disc disease Diabetes mellitus, type 2 E11.9 BPH (benign prostatic hyperplasia) N40.0 Hyperlipidemia E78.5
[2021-06-21] MEDS: CYANOCOBALAMIN (B-12) 2,500 MCG TABLET SL SCH (13:46)
[2021-06-21] MEDS: INSULIN ASPART PER UNIT SC SCH ×3 (13:47→20:53)
--- NOTE | 2021-06-21 14:05 | Pharmacy Report ---
Pharmacy Glycemic Short Note 2 - Date of Service June 21, 2021 - Glycemic Short BSG Results (Last 24 hours): 06/21/21 06/21/21 06/21/21 06:37 10:41 12:10 POC Glucose 107 H 129 H 119 H OUTPATIENT ANTIDIABETIC REGIMEN: * Empaglifozin 10 mg qAM * A1c = 5.8% ASSESSMENT: * Jaret is a 75 yo s/p spinal surgery * Excellent BSG control thus far today. BSGs 107, 129, 119 mg/dL. * Patient did receive a dose of dexamethasone IV suzanne-op, therefore he could experience postprandial hyperglycemia throughout the day. Will order a one time prn dose of NPH to be given for BSG > 150 mg/dL at dinner. PLAN FOR INPATIENT GLYCEMIC CONTROL: * Hold outpatient oral diabetes medications * Basal insulin * NPH 0-15 units SQ with dinner x 1 (only for BSG > 150) * Bolus insulin * NovoLog per scale ACHS or Q6hrs while NPO * Goal Range: Low 110 mg/dL - High 140 mg/dL * Correction Factor: 20 mg/dL/unit * Nutritional / Prandial insulin per carb ratio of 1 unit per 8 grams CHO consumed
[2021-06-21] MEDS: GABAPENTIN 300 MG CAP PO SCH ×2 (14:56→20:53)
[2021-06-21] MEDS ORDERED: NovoLIN-N (NPH) PER UNIT CHARGE SQ SCH (16:30)
[2021-06-21] MEDS: ceFAZolin 2000MG 2,000 MG/15 ML SYR IV SCH (18:12)
[2021-06-21] MEDS: ACETAMINOPHEN 500 MG TAB PO PRN (19:40)
[2021-06-21] MEDS: ALFUZOSIN HCL 10 MG TAB PO SCH (20:51)
[2021-06-21] MEDS: EZETIMIBE 10 MG TABLET PO SCH (20:51)
[2021-06-21] MEDS: ROSUVASTATIN CALCIUM 20 MG TAB PO SCH (20:52)
[2021-06-21] MEDS: ASPIRIN 81 MG ECTAB PO SCH (20:52)
[2021-06-21] MEDS: DOCUSATE SODIUM/SENNA 50/8.6MG TAB PO SCH (20:52)
[2021-06-21] MEDS: PANTOprazole 40 MG TAB PO SCH (20:53)
[2021-06-21] MEDS ORDERED: LOSARTAN POTASSIUM 50 MG TAB PO SCH (21:00)
[2021-06-22] MEDS: ceFAZolin 2000MG 2,000 MG/15 ML SYR IV SCH (00:27)
[2021-06-22] MEDS: SODIUM CHLORIDE 0.9% 1000ML 1,000 ML IV SCH (01:05)
[2021-06-22] MEDS: ACETAMINOPHEN 500 MG TAB PO PRN ×3 (05:11→23:43)
[2021-06-22] MEDS: POLYETHYLENE (MIRALAX) 17 GM PACK PO SCH ×4 (05:36→23:43)
[2021-06-22 08:10] LABS: Basophils # (auto) 0.01 K/uL (0-0.2); Basophils % (auto) 0.1 %; Eosinophils # (auto) 0.01 K/uL (0-0.5); Eosinophils % (auto) 0.1 %; Hematocrit (blood only) 34.5 % (42-52); Immature Granulocytes # (auto) 0.03 K/uL (0.00-0.02); Immature Granulocytes % (auto) 0.2 %; Lymphocytes # (auto) 2.58 K/uL (1.2-3.4); Lymphocytes % (auto) 18.1 %; Mean Corpuscular Hemoglobin 31.9 pg (25-34); Mean Corpuscular Hgb Conc 34.8 g/dL (32-36); Mean Corpuscular Volume 91.8 fL (80-100); Mean Platelet Volume 9.8 fL (7.4-10.4); Monocytes % (auto) 9.1 %; Neutrophils # (auto) 10.36 K/uL (1.4-6.5); Neutrophils % (auto) 72.4 %; Platelet Count 158 K/uL (130-400); RDW Coefficient of Variation 13.8 % (11.5-14.5); RDW Standard Deviation 46.1 fL (36.4-46.3); Red Blood Count 3.76 M/uL (4.7-6.1); White Blood Count 14.29 K/uL (4.8-10.8)
[2021-06-22 08:31] LABS: BUN Creatinine Ratio 18.2 (10-20); Calcium 7.6 mg/dl (8.5-10.1); Creatinine Clr Calc Pharmacy 79.6 ml/min; Est GFR (African American) 96.7 ml/min; Est GFR (Non-African American) 83.4 ml/min; Potassium 3.7 mmol/L (3.5-5.1)
[2021-06-22] MEDS: INSULIN ASPART PER UNIT SC SCH ×4 (08:31→21:00)
[2021-06-22] MEDS: PANTOprazole 40 MG TAB PO SCH ×2 (08:32→21:14)
[2021-06-22] MEDS: GABAPENTIN 300 MG CAP PO SCH ×3 (08:32→21:13)
[2021-06-22] MEDS: POTASSIUM CHLORIDE CRTAB 20 MEQ TABCR PO SCH (08:32)
[2021-06-22] MEDS: MAGNESIUM OXIDE 400 MG TAB PO SCH (08:32)
[2021-06-22] MEDS: hydroCHLOROthiazide 25 MG TAB PO SCH (08:32)
[2021-06-22] MEDS: METOPROLOL SUCC 50MG EXT REL TAB PO SCH (08:32)
[2021-06-22] MEDS ORDERED: NON-FORMULARY MEDICATION (Empagliflozin [Jardiance] 10 mg Tablet) PO SCH (09:00)
[2021-06-22] MEDS ORDERED: PANTOprazole 40 MG TAB PO SCH (09:00)
--- NOTE | 2021-06-22 11:56 | Hospitalist Progress Note ---
Date of Service June 22, 2021 Assessment & Plan (1) Spinal stenosis, lumbar region with neurogenic claudication: Plan: s/p lumbar decompression and fusion w/ Dr. Small- POD # 1 - Pain control per primary service - Rescue Narcan is on chart - ABX per primary service - DVT prophylaxis per primary service - Incision/drain care per primary service - Bowel regimen available - PT/OT eval - Utilize incentive spirometer q1h while awake (2) CAD (coronary artery disease), alutiiq coronary artery: Plan: CAD with AMI in 2014 and Stenting to LAD in 2019 - Continue BB - Hold Cozaar 100mg tonight- follow renal indices in morning- likely able to restart - BP very acceptable at this time - ASA restart when hemostasis ensured by primary service- ordered to restart in 06/21/21 by primary - No current symptoms of angina (3) Diabetes mellitus, type 2: Plan: On Jardiance at home- - Pharmacy consult placed for glycemic control by primary service - Follow (4) CHF (congestive heart failure): Plan: ICM with Grade I diastolic dysfunction- not acute exacerbation- stable - ECHO reports from clearance- ECHO 04/04- EF 55-60% thickened AV, mod MR, (5) Hyperlipidemia: Plan: Cotninue statin - Cartoids reported <50% 04/04 bilaterally (6) GERD (gastroesophageal reflux disease): Plan: Protonix increased to 40mg PO BID while postoperative - can reduce back to daily when tolerating adequate diet and no more steroids - H2 discontinued (7) Degenerative disc disease: Plan: As above - Continue gabapentin 300 TID (8) BPH (benign prostatic hyperplasia): Plan: Continue Alfuzosin - D/c gaxiola Plan: Cap fluids, remove gaxiola. Continue PT/OT Suspect elevation in wbc is likely reactive from surgery, no other s/sx of infection Thank you for allowing us to participate in the care of your patient. No further recommendations at this time, will sign off but continue to do daily chart checks. Plan d/w Dr. Desai. Admission and Anticipated Discharge Date Admission Date: June 21, 2021 Subjective Patient seen on rounds this morning. He remarks that his back pain has improved. Gaxiola catheter remains in place. He denies cp or dyspnea. No BM yet since surgery. Review of Systems Review of Systems: REVIEW OF SYSTEMS: Constitutional: No fever, sweats or chills Eyes: No diplopia, no worsening or blurred vision ENT: normal hearing, no trouble swallowing Respiratory: No cough, sputum, dyspnea at rest or on exertion Cardiovascular: No chest pain, tightness or palpitations Abdomen: No pain, nausea, vomiting, diarrhea or constipation : (+) urinary catheter Musculoskeletal: (+) back soreness at incision site Neurologic: No weakness, numbness/tingling, or balance problems Psychiatric: No anxiety or depression Skin: No rash or itch Physical Exam Physical Exam: GENERAL: 75 yo well-developed, well-nourished elderly WM. NAD. LUNGS: Clear to auscultation bilaterally. No accessory muscle use. No W/R/R. CARDIOVASCULAR: Regular rate and rhythm. No M/G/R. ABDOMEN: Soft, non-tender and non-distended. BS normal x 4 quad. EXTREMITIES: No edema. Non-tender. Peripheral pulses +2/4. NEUROLOGIC: A&O x3. No focal neurological deficits. PSYCHIATRIC: Cooperative. Appropriate mood and affect. SKIN: Warm, dry, intact. No rashes or lesions. SERJIO drain originating from back incision. Results & Data Results & Data ([facility]) Vital Signs (Past 12 Hours) Vital Signs Temp Pulse Resp BP Pulse Ox 06/22/21 06:55 36.5 C 63 18 113/66 96 Laboratory Results 06/22/21 07:25 06/22/21 07:25 PG Care Time/CCT Total # of Minutes Spent Total Time Spent with Patient: Total time spent is greater than 50% in coordination of care (as documented) at patient's floor/unit and/or counseling patient: Coding Level of Care Code 73755 Subseq Hosp Care Lvl 2 Diagnoses Spinal stenosis, lumbar region with neurogenic claudication M48.062 CAD (coronary artery disease), alutiiq coronary artery I25.10 Diabetes mellitus, type 2 E11.9 CHF (congestive heart failure) I50.9 Hyperlipidemia E78.5 GERD (gastroesophageal reflux disease) K21.9 Degenerative disc disease BPH (benign prostatic hyperplasia) N40.0
--- NOTE | 2021-06-22 12:03 | Orthopedic Progress Note ---
Date of Service June 22, 2021 Assessment & Plan (1) Spinal stenosis, lumbar region with neurogenic claudication: Plan: At this time continue physical therapy monitor SERJIO output hopefully discharge this weekend. Admission and Anticipated Discharge Date Admission Date: June 21, 2021 Subjective Back pain is controlled leg pain markedly improved Physical Exam Physical Exam: Patient is in the chair at the bedside. Is good strength testing. Was comfortable. Results & Data ([facility]) Vital Signs (Past 12 Hours) Vital Signs Temp Pulse Resp BP Pulse Ox 06/22/21 06:55 36.5 C 63 18 113/66 96
[2021-06-22] MEDS: ROSUVASTATIN CALCIUM 20 MG TAB PO SCH (21:13)
[2021-06-22] MEDS: EZETIMIBE 10 MG TABLET PO SCH (21:14)
[2021-06-22] MEDS: ALFUZOSIN HCL 10 MG TAB PO SCH (21:15)
[2021-06-22] MEDS: ASPIRIN 81 MG ECTAB PO SCH (21:15)
[2021-06-22] MEDS: DOCUSATE SODIUM/SENNA 50/8.6MG TAB PO SCH (21:15)
[2021-06-23] MEDS: POLYETHYLENE (MIRALAX) 17 GM PACK PO SCH ×4 (06:00→23:55)
[2021-06-23] MEDS: METOPROLOL SUCC 50MG EXT REL TAB PO SCH (07:33)
[2021-06-23] MEDS: hydroCHLOROthiazide 25 MG TAB PO SCH (07:33)
[2021-06-23] MEDS: POTASSIUM CHLORIDE CRTAB 20 MEQ TABCR PO SCH (07:33)
[2021-06-23] MEDS: GABAPENTIN 300 MG CAP PO SCH ×3 (07:33→20:51)
[2021-06-23] MEDS: PANTOprazole 40 MG TAB PO SCH ×2 (07:33→20:50)
[2021-06-23] MEDS: MAGNESIUM OXIDE 400 MG TAB PO SCH (07:33)
[2021-06-23] MEDS: INSULIN ASPART PER UNIT SC SCH ×4 (08:29→20:48)
--- NOTE | 2021-06-23 10:59 | Pharmacy Report ---
Pharmacy Glycemic Short Note 2 - Date of Service June 23, 2021 - Glycemic Short BSG Results (Last 24 hours): 06/22/21 06/22/21 06/22/21 11:51 17:07 20:30 POC Glucose 103 H 105 H 121 H 06/23/21 07:56 POC Glucose 110 H OUTPATIENT ANTIDIABETIC REGIMEN: * Empaglifozin 10 mg qAM * A1c = 5.8% ASSESSMENT: 06/23/21 * BSG control post-op has been very good. * Novolog parameters appear to be appropriate. * No changes required at this time. * Anticipate discharge this weekend. 06/21 * Jaret is a 75 yo s/p spinal surgery * Excellent BSG control thus far today. BSGs 107, 129, 119 mg/dL. * Patient did receive a dose of dexamethasone IV suzanne-op, therefore he could experience postprandial hyperglycemia throughout the day. Will order a one time prn dose of NPH to be given for BSG > 150 mg/dL at dinner. PLAN FOR INPATIENT GLYCEMIC CONTROL: * Hold outpatient oral diabetes medications * Basal insulin * none at this time * Bolus insulin * NovoLog per scale ACHS or Q6hrs while NPO * Goal Range: Low 110 mg/dL - High 140 mg/dL * Correction Factor: 20 mg/dL/unit * Nutritional / Prandial insulin per carb ratio of 1 unit per 8 grams CHO consumed
[2021-06-23] MEDS: CYANOCOBALAMIN (B-12) 2,500 MCG TABLET SL SCH (12:58)
--- NOTE | 2021-06-23 13:41 | Orthopedic Progress Note ---
Date of Service June 23, 2021 Assessment & Plan (1) GERD (gastroesophageal reflux disease): Plan: This time we will continue physical therapy monitor his SERJIO operatively discharge home tomorrow afternoon. Admission and Anticipated Discharge Date Admission Date: June 21, 2021 Subjective Back pain controlled leg pain markedly improved Physical Exam Physical Exam: On exam he is in the chair at the bedside. Skin strength testing. Appears comfortable. Results & Data ([facility]) Vital Signs (Past 12 Hours) Vital Signs Temp Pulse Pulse Resp BP Pulse Ox 06/23/21 12:41 37.4 C 84 15 138/70 97 06/23/21 07:30 36.6 C 79 16 143/73 H 93 06/23/21 01:52 36.7 C
[2021-06-23] MEDS: ASPIRIN 81 MG ECTAB PO SCH (20:50)
[2021-06-23] MEDS: ALFUZOSIN HCL 10 MG TAB PO SCH (20:50)
[2021-06-23] MEDS: DOCUSATE SODIUM/SENNA 50/8.6MG TAB PO SCH (20:50)
[2021-06-23] MEDS: EZETIMIBE 10 MG TABLET PO SCH (20:51)
[2021-06-23] MEDS: ROSUVASTATIN CALCIUM 20 MG TAB PO SCH (20:51)
[2021-06-23] MEDS: ACETAMINOPHEN 500 MG TAB PO PRN (22:12)
[2021-06-24] MEDS: POLYETHYLENE (MIRALAX) 17 GM PACK PO SCH (06:00)
[2021-06-24] MEDS: INSULIN ASPART PER UNIT SC SCH ×2 (08:47→12:32)
[2021-06-24] MEDS: PANTOprazole 40 MG TAB PO SCH (08:48)
[2021-06-24] MEDS: MAGNESIUM OXIDE 400 MG TAB PO SCH (08:48)
[2021-06-24] MEDS: METOPROLOL SUCC 50MG EXT REL TAB PO SCH (08:48)
[2021-06-24] MEDS: hydroCHLOROthiazide 25 MG TAB PO SCH (08:48)
[2021-06-24] MEDS: GABAPENTIN 300 MG CAP PO SCH (08:48)
[2021-06-24] MEDS: POTASSIUM CHLORIDE CRTAB 20 MEQ TABCR PO SCH (08:49)
--- NOTE | 2021-06-24 10:41 | Discharge Summary ---
Date of Service June 24, 2021 Principal Diagnosis Lumbar spinal stenosis with neurogenic claudication Discharge Data Allergies Allergy/AdvReac Type Severity Reaction Status Date / Time procaine [From Novocain] AdvReac Mild "got slow Verified 06/21/21 06:47 all over feeling"-HAPPY Consultations 06/21/21 11:39 Consult Hospitalist Routine Procedures Performed Operation Date: 06/21/21 07:45 Actual Procedures p L2-L3 and L4-L5 Decompression and Fusion, L2-L3 and L3-L4 Interbody Cage, Spinal Cord Monitoring(Not Applicable) - Joon Small DO s L3-L4 Hardware Removal,(Not Applicable) - Joon Small DO Ordered Studies 06/21/21 07:45 FL lumbar spine 2-3V Routine Hospital Course (1) Spinal stenosis, lumbar region with neurogenic claudication: Patient 1 multilevel lumbar decompression fusion tolerated so was taken orthopedic for postoperative postop day 1 is up and ambulating. Postop day #2 on postop day #3 pain was well controlled SERJIO drain decreasing bone. Extra strength testing. Subsequent discharge home. Discharge orders instructions from the chart for further review. Total Time Total Time Spent Total Time Spent (In Minutes): 20 minutes Discharge Plan Discharge Items Patient Disposition: Home - Self-Care Reason For Visit: Spinal Stenosis, Lumbar Region with Neurogenic Discharge Diagnosis: Lumbar spinal stenosis with neurogenic claudication Activity: As commented below Non-emergency contact: Primary Care Provider Call non-emergency contact if: you have any medication questions Follow-up/Referrals: Martin Rothman D.O. [Primary Care Provider] - Diet: Regular Addtl Attending Provider Instructions: ACTIVITY RECOMMENDATIONS: SELF CARE INSTRUCTIONS AFTER THORACIC/LUMBAR FUSIONS 1. You may walk to your tolerance. It is good exercise for your legs and back. Expect some back and intermittent leg aches and pains. 2. You may perform "counter-top" level activities (make a sandwich, antwan with a project, etc.). 3. No bending or lifting of more than 10 pounds or back twisting of any nature (roll like a log when turning in bed). 4. You may ride in a car for 20-30 minutes at a time. No driving until after your first visit with your doctor. 5. Frequent changes of position and restricting sitting to 30 minutes at a time will help limit the amount of back spasms and stiffness you may experience. 6. You may discontinue the use of ambulatory aids (cane, crutches, etc.) once your strength and confidence allow. 7. You may sign language interpreter the shower and let water strike your incision when you arrive home at least once daily. Do not take a tub bath, sit in a hot tub or go into a swimming pool until after your first recheck in the office. SPECIAL CARE INSTRUCTIONS: VERY IMPORTANT TO READ AND REVIEW A. Your surgical incision has been closed with a cosmetic suture under the skin that will dissolve in about 6 weeks. In 14 days, you can use a pair of clean scissors and cut the suture that is left outside of the skin at the ends of your incision. 1. The small skin tapes can be removed 7 days after surgery if they have not fallen off by that point. 2. You may keep the wound open to air as much as possible to promote healing after post-op day number 5 unless told otherwise by your doctor. 3. If you think the wound looks like it is becoming infected (redness or wo rsening drainage) and/or you are experiencing fever, chill or worsening back pain and muscle spasms, contact the office so that we may evaluate you as soon as possible. B. Complications are uncommon, but please contact us if you have any signs or symptoms of: 1. wound infection (fever higher than 102.5 degrees F, redness, separation of wound, drainage, or increasing pain from the incision) 2. blood clots in legs (pain, swelling, redness and warmth in legs) 3. urinary tract infection (fever higher than 102.5 degrees F, burning upon urination or increased frequency of urination) 4. nerve problems (inability to walk on your toes or heels, numbness, loss of bowel or bladder control) 5. any other symptoms that concern you C. Please call the office at if you have any concerns or questions about your operation or recovery. D. No smoking! Smoking drastically decreases the chance of a solid fusion. E. Do not take any anti-inflammatory medications (Indocin, Advil, Motrin, Aspirin, Naprosyn, etc.) as these may inhibit the chance of a solid fusion. Tylenol is okay to take for pain. MANAGING PAIN AFTER SPINAL SURGERY 1. Narcotic medication is intended for short-term use and will be provided for surgical pain. Surgical pain usually lasts for a period of 4-6 weeks. Narcotic medication includes Percocet, Vicodin, Darvocet, Tylenol #3 or Lortab. 2. Longer-term pain is more appropriately treated with non-narcotic medication such as Tylenol ES. 3. Muscle spasm is not appropriately treated with narcotics. Muscle relaxers such as Soma, Flexeril or Skelaxin can be used along with Tylenol ES. 4. Remember that we all live with some "aches and pains". This is not unusual or uncommon after an injury or as we get older. a. Back pain is expected and may include muscle spasms for 4 to 6 weeks after surgery. The pain should gradually improve. If the pain worsens for no apparent reason, please contact the office. b. Intermittent leg pain may also be experienced and should not be concerned about unless it worsens for no apparent reason. If so, please contact the office. 5. We will provide appropriate medication within the normal guidelines of their prescribed use. We will also be very cautious and aware of potential abuse and extended duration of patients' medication needs. a. Pain medications are for your comfort and to assist with sleep and rest so that the tissue can heal. They are not provided in order to return to normal activity and should not be used through the day. To do so or worsening pain at night can result from ongoing tissue damage and development of tolerance to the prescribed medicine. 6. Please allow 2-3 days to process refills. Prescriptions will not be mailed but must be picked up at the office. FOLLOW UP VISIT: Keep your scheduled follow-up appointment. Any questions, please call the office at . Pending Studies at Discharge: No Stand-Alone Forms: [facility], Sm[facility] Cessation Medications and DC Order Prescriptions: New oxycodone 5 mg tablet 5 mg PO Q6H PRN (Reason: pain, severe) Qty: 30 RF: 0 tramadol 50 mg tablet 50 mg PO Q6H PRN (Reason: pain, moderate) Qty: 30 RF: 0 Continued metoprolol succinate 50 mg Tablet Extended Release 24 Hr 50 mg PO QAM RF: 0 nitroglycerin 0.4 mg Tablet, Sublingual 0.4 mg sublingual UD PRN (Reason: Chest Pain) RF: 0 losartan 100 mg Tablet 100 mg PO HS RF: 0 rosuvastatin 40 mg Tablet 40 mg PO HS RF: 0 alfuzosin [Uroxatral] 10 mg Tablet Extended Release 24 Hr 10 mg PO HS RF: 0 omeprazole 20 mg Tablet,Delayed Release (Dr/Ec) 20 mg PO QAM RF: 0 aspirin 81 mg Tablet,Delayed Release (Dr/Ec) 81 mg PO HS RF: 0 gabapentin 300 mg Capsule 300 mg PO TID RF: 0 hydrochlorothiazide 25 mg Tablet 25 mg PO QAM RF: 0 cyanocobalamin (vitamin B-12) 5,000 mcg Capsule 5,000 mcg PO Q2D RF: 0 potassium chloride 20 mEq Tablet Extended Release 20 meq PO QAM RF: 0 Jardiance 10 mg Tablet 10 mg PO QAM RF: 0 acetaminophen 500 mg Tablet 1,000 mg PO Q6H PRN (Reason: Pain) RF: 0 ezetimibe 10 mg Tablet 10 mg PO HS RF: 0 magnesium oxide 400 mg magnesium Capsule 400 mg PO QAM RF: 0 amoxicillin 500 mg Tablet 500 mg PO Q8H RF: 0 Discharge Orders: Discharge Order (Routine); Ordered 06/24/21 Ordered By: Joon Small Admission Data Admit Date/Time: 06/21/21 10:30 Attending Provider: Joon Small Admit Provider: Joon Small Primary Care Provider: Martin Rothman Other Providers: Jh Roach
--- NOTE | 2021-06-28 07:31 | Coding Query ---
CONGESTIVE HEART FAILURE To Promote full compliance with coding requirements relating to patient care, physician participation is requested in all cases of cyber instructor uncertainty. Please assist us with the following questions. A diagnosis of Congestive Heart Failure is documented in the patient's medical record. To accurately code this diagnosis and to compare patient severity, we ask that you specify the type of heart failure by placing an X within the parenthesis (x). Pt with spinal fusion. Hospitalist progress note = diastolic dysfunction type I , no acute exacerbation. SYSTOLIC HEART FAILURE ( ) Acute ( ) Chronic ( ) Acute on Chronic ( ) Rheumatic ( ) Unknown DIASTOLIC HEART FAILURE ( ) Acute (x ) Chronic ( ) Acute on Chronic ( ) Rheumatic ( ) Unknown COMBINED SYSTOLIC AND DIASTOLIC HEART FAILURE ( ) Acute ( ) Chronic ( ) Acute on Chronic ( ) Rheumatic ( ) Unknown Was the CHF Present On Admission? Please check the appropriate box: ( x) Present on Admission ( ) Not Present On Admission ( ) Clinically undetermined Thank you Mike CUTLER
== END 2021-06-24 13:22 | disposition home or self-care (01) | DRG 454 ==
LOC: ASU 06:14 → 3E 10:30